=== PATIENT | female | born 2005 | race Caucasian/White ===

== ENCOUNTER 2025-04-24 14:32 | Inpatient (IN) | payer MEDICAID, SELFPAY ==
--- OUTSIDE RECORDS SUMMARY | 2025-04-21 21:13 | XMS_ITS | Encounter Summary ---
Author Organization Deisi Alfonso [facility] Address [address] [place] [id number] Care Team Providers Care Civil Cad Designer Name Role Phone None, Pcp MD Primary Care Provider Unavailabl e Reason for Visit * Reason Comments Behavioral Health Encounter Details Date Type Department Care Team (Late st Contact Info) Description 04/21/2025 9:13 PM EDT - 04/24/2025 12:45 PM EDT Emergency [facility] [address] [place] [address] James Womack MD [address] [place] [address] Carlo Hoffman MD [address] [place] [address] Mauricio Lemon MD [address] [place] [address] Lul Martinez MD [address] [place] [address] Ander Senior MD [address] [place] [address], [address] [place] [id number] Denise Marinelli MD [address] [place] [address] Amando Hicks MD [address] [place] [address] Shannan Hargrove DO [address] [place] [address] Intentional overdose, initial encounter ([facility]) (Primary Dx); Episode of recurrent major depressive disorder, unspecified depression episode severity ([facility]); Depression, unspecified depression type [F32.A] Discharge Disposition: Another Health Care Institution Not Defined Social History Tobacco Use Types Packs/Day Years Used Date Smoking Tobacco: Every Day Cigarettes Tobacco Cessation:Ready to Q uit: Not Asked; Counseling Given: Not Answered Comments:vape Alcohol Use Standard Drinks/Week Comments Yes 0 (1 standard drink = 0.6 oz pur e alcohol) every day, a bottle or two Humiliation, Afraid, Rape, and Kick questionnair e Answer Date Recorded Within the last year, have y ou been afraid of your partner or ex-partner? No 04/21/2025 Emotionally Abused Not on file 04/21/2025 Physically Abused Not on file 04/21/2025 Sexually Abused Not on file 04/21/2025 Overall Financial Resource Strain (CARDIA) Answe r Date Recorded How hard is it for you to pa y for the very basics like food, housing, medical care, and heating? Not hard at all 04/21/2025 Hunger Vital Sign Answer Date Recorded Within the past 12 months, y ou worried that your food would run out before you got the money to buy more. Never true 04/21/20 25 Ran Out of Food in the Last Year Not on file 04/21/2025 PRAPARE - Transportation Answer Date Re corded In the past 12 months, has l ack of transportation kept you from medical appointments or from getting medications? No 04/03 In the past 12 months, has l ack of transportation kept you from meetings, work, or from getting things needed for daily living? No 04/21/2025 Housing Stability Vital Sign Answer Richar e Recorded In the last 12 months, was t here a time when you were not able to pay the mortgage or rent on time? No 04/21/2025 Number of Times Moved in the Last Year Not on fi le 04/21/2025 At any time in the past 12 m [facility], were you homeless or living in a snf (including now)? Yes 04/21/2025 [facility] Utilities Answer Date Recorded In the past 12 months has [employer] electric, gas, oil, or water company threatened to shut off services in your home? No 04/21/2025 Food Insecurity Answer Date Recorded Within the past 12 months, y ou worried that your food would run out before you got the money to buy more. Never true 04/21/20 Ran Out of Food in the Last Year Not on file 04/21/2025 Intimate Partner Violence Answer Date R ecorded Emotionally Abused Not on file 04/21/2025 Within the last year, have y ou been afraid of your partner or ex-partner? No 04/21/2025 Physically Abused Not on file 04/21/2025 Sexually Abused Not on file 04/21/2025 Housing Stability Answer Date Recorded Unstable Housing in the Last Year Not on file 04/21/2025 In the last 12 months, was t here a time when you were not able to pay the mortgage or rent on time? No 04/21/2025 [address] of Places Lived in the Last Year Not on f ile 04/21/2025 Comments No Sex and Gender Information Value Date Recorded Sex Assigned at Female 04/21/2025 8:59 PM EDT Legal Sex Female 10:39 PM EDT Gender Identity Female 04/21/2025 8:59 PM EDT Sexual Orientation Not on file documented as of this encounter Last Filed Vital Signs Vital Sign Reading Time Taken Comments Blood Pressure 124/70 04/24/2025 12:12 PM EDT Pulse 81 04/24/2025 12:12 PM EDT Temperature 36.2 C (97.2 F) 04/24/2025 12:12 PM EDT Respiratory Rate 20 04/24/2025 12:12 PM EDT Oxygen Saturation 100% 04/24/2025 12:12 PM EDT Inhaled Oxygen Concentration - - Weight 56.2 kg (124 lb) 04/21/2025 9:11 PM EDT Height 160 cm (5' 3 ) 04/21/2025 9:11 PM EDT Body Mass Index 21.97 04/21/2025 9:11 PM EDT documented in this encounter Functional Status * Are you deaf or do you have serious difficulty hearing? Answer Date of Assessment Author No 04/21/2025 8:59 PM EDT Sharath Ruiz * Are you blind or do you have serious difficulty seeing, even when wearing glasses? Answer Date of Assessment Author No 04/21/2025 8:59 PM EDT Sharath Ruiz * Do you have serious difficulty walking or climbing stairs? Answer Date of Assessment Author No 04/21/2025 8:59 PM EDT Sharath Ruiz * Do you have difficulty dressing or bathing? Answer Date of Assessment Author No 04/21/2025 8:59 PM EDT Sharath Ruiz * Because of a physical, mental, or emotional condition, do you have difficulty doing errands alone such as visiting the doctor? Answer Date of Assessment Author No 04/21/2025 8:59 PM EDT Sharath Ruiz documented as of this encounter Mental Status * Because of a physical, mental, or emotional condition, do you have serious difficulty concentrating, remembering, or making decisions? Answer Entry Date Author No 04/21/2025 8:59 PM EDT Sharath Ruiz documented in this encounter Medications at Time of Discharge methylphenidate ER (CONCERTA) 18 MG 24 hr tablet Take 1 tablet (18 mg total) by mouth every morning. documented as of this encounter Progress Notes * HALLE Cruz - 04/24/2025 10:23 AM EDT Images from the original note were not included. ED Psych Progress Note Sticky Note Psych Handoff Reason for visit: ibuprofen OD Psych Hx: bpd Drugs/Alcohol: cannabinoids Section 12a: yes HES: reevaluating 04/22/25 am Suicide Level: moderate Medication Reconciliation complete: no Restraints/IM meds in last 24 hours: no Psych Consult: no Placement anticipated in the next 24 hours: pending Other information neg med w/u Last edited by Carlo Hoffman MD on 04/22/25 at 0702 Vitals Date and Time Temp Pulse Resp BP SpO2 User 04/24/25 0809 97.7 ??F (36.5 ??C) 68 20 111/73 100 % KF 04/23/25 0824 -- 105 20 115/75 100 % IG 04/22/25 2242 -- 83 16 130/68 98 % AK 04/22/25 1952 -- 95 16 125/63 97 % AK 04/22/25 1456 -- 102 16 -- 99 % M 04/22/25 1205 -- 86 18 110/56 99 % M 04/21/25 2130 98.2 ??F (36.8 ??C) 107 18 107/59 96 % PL ED Course as of 04/24/25 1023 Tue Apr 22, 2025 1331 Patient has been reevaluated by behavioral health services and they recommended inpatient. Patient extremely angry, going around the ED, screaming at the top of her lungs, will not discuss or talk with myself, cannot be redirected. She appears to be at high risk of injuring hierself or others.Will place in soft restraints, treat with Geodon and Versed IM. Initial ECG shows normal QTc. [KB] 2305 Pt being transferred to [facility] pod. Care transferred to Dr. Marinelli at [facility] ED. [AM] Wed Apr 23, 2025 1626 Updated patient on her blood work and EKG results. I received secure epic chat from behavioralhealth clinician who did a reevaluation of her this afternoon. She had told behavioral clinician that she was not informed of her blood work results. Behavioral health clinician continues to recommend inpatient level of care at this time. [SD] Brittani Apr 24, 2025 1019 [place] for 1:30pm arrival; accepting Dr Jain [SD-2] ED Course User Index [AM] Lul Martinez MD [KB] Carlo Hoffman MD [SD] HALLE Kaminski [SD-2] HALLE Cruz Clinical Impression 1. Intentional overdose, initial encounter ([facility]) 2. Episode of recurrent major depressive disorder, unspecified depression episode severity ([facility]) 3. Depression, unspecified depression type [F32.A] Disposion: Transfer * Warren Mcarthur - 04/24/2025 10:12 AM EDT Behavioral Health Crisis Consult- Contact Note Patient: Laura Bowers : 2005 Admit Date: 04/21/2025 Date of Consult: 04/24/2025 Time of Consult: 10:12 AM Narrative: Patient: Laura Bowers Accepting Facility: [facility] Facility Address: [address] [place] [address] Accepting MD: Dr Jain Arrival Time: 1:30pm Nurse to Nurse Report: they are calling for N2N Other Labs or Needs: N/A HCP/Guardian (if applicable): N/A Reason for Section 12: intention ingestion/OD, poor insight/judgement and impulsivity Information Given To: via secure chat * Em Sheriff MS - 04/24/2025 8:13 AM EDT Behavioral Health Crisis Consult - Follow Up Patient: Laura Bowers : 2005 Admit Date: 04/21/2025 Date of Consult: 04/24/2025 Time of Consult: 8:13 AM CC: Chief Complaint Patient presents with Behavioral Health Chart Reviewed, case discussed with team and staff. Updates: Psych consult outcome/psych medications: None Medical/Psychiatric/Substance/Social/Family History: Histories from previous consult note of 04/23 remain unchanged, except as note in HPI. Current Medications: Scheduled Medications[1] Current PRN: PRN Medications[2] Allergies: Patient has no known allergies. Physical Exam: Patient Vitals for the past 24 hrs: BP Temp Temp src Pulse Resp SpO2 04/24/25 0809 111/73 97.7 ??F (36.5 ??C) Temporal 68 20 100 % 04/23/25 0824 115/75 -- -- (!) 105 20 100 % Mental Status Exam: General Appearance: Appears stated age, well-developed, well-nourished and no apparent distress. Disheveled. Level of Consciousness: Alert. Orientation: Oriented to person, place and time. Attitude and Behavior: Guarded. Eye Contact: Eye contact avoidant. Psychomotor Activity: Normal. Speech: Normal rate and rhythm. Loud. Language: Normal. Affect: Irritable. Thought Process and Associations: Circumstantial. Thought Content: Patient denies SI/HI/AVH. Attention Span: Appropriate. Memory: Grossly intact. Fund of Knowledge: Normal. Cognition: Normal. Insight: Poor. Minimizing present. Judgment: Poor. Labs, Imaging & Other Studies: Laboratory: Recent lab results have been reviewed and are notable for N/A. No results found for this or any previous visit (from the past 24 hours). EKG: No studies were reviewed. C-SSRS: [place] Suicide Severity Rating Scale (C-SSRS) Since Last Contact Screener 1) Have you wished you were or wished you could go to sleep and not wake up? (Since Last Contact): No 2) Have you actually had any thoughts about killing yourself? (Since Last Contact): No 6) Have you done anything, started to do anything, or prepared to do anything to end your life? (Since Last Contact): No C-SSRS Risk Level (Since Last Contact Screener): No Risk Indicated (04/24/25 0809 : Em Sheriff, ) Assessment: Laura Bowers is a 19 year old female who presented to [facility] ED on 04/21/2025 after intentional ingestion of 15 x 800mg Ibuprofen. Patient was evaluated and determined to be IPLOC. Patient was transferred to [facility] ED. Upon evaluation today, patient continues to present with minimal insight to need for treatment. Patient is irritable and guarded through evaluation. Patient states that she took the medication because she was upset and denies this was an attempt to harm herself. Patient reports she came to ED to dilute it from her system however was held involuntarily instead. Patient is looking forward to placement at psychiatric facility and expresses frustration around boarding length in ED. Patient continues to state I'm fine and expresses she does not understand why she is here. Concerns remain forintentional ingestion prior to ED arrival in addition to poor insight/judgement and impulsivity. IPLOC continues to be recommended at this time. Recommendations: Inpatient Level of Care Requested LOC: IPLOC Disposition Recommendation: Inpatient Level of Care Behavioral Health Diagnosis: F32.9 Unspecified Depressive Disorder Duration: Time Spent (min): 60 Case d/w: [facility] Monogram Operator Berkley Moreno Signed by: Em Sheriff MS [1] [2] * Bijal Sommer, ASSISTANT ART DIRECTOR - 04/23/2025 4:24 PM EDT Behavioral Health Crisis Consult - Follow Up Patient: Laura Bowers : 2005 Admit Date: 04/21/2025 Date of Consult: 04/23/2025 Time of Consult: 4:24 PM CC: Chief Complaint Patient presents with Behavioral Health Chart Reviewed, case discussed with team and staff. Patient reports that she wants to be discharged. Updates: Psych consult outcome/psych medications: Was given IM versed and geodon yesterday IM. Collateral Contact: No Medical/Psychiatric/Substance/Social/Family History: Histories from previous consult note of 04/22/25 remain unchanged, except as note in HPI. Current Medications: Scheduled Medications[1] Current PRN: PRN Medications[2] Allergies: Patient has no known allergies. Physical Exam: Patient Vitals for the past 24 hrs: BP Pulse Resp SpO2 04/23/25 0824 115/75 (!) 105 20 100 % 04/22/25 2242 130/68 83 16 98 % 04/22/25 1952 125/63 (!) 95 16 97 % Mental Status Exam: Mental Status Exam General Appearance: Appears stated age, well-developed, well-nourished, appropriately groomed and appropriately dressed. Moderate distress. Level of Consciousness: Alert. Orientation: Oriented to person, place, time and situation. Attitude and Behavior: Interactive. Sarcastic. Eye Contact: Eye contact intermittent. Psychomotor Activity: Normal. Speech: Normal volume, rhythm and coherence. Pressured. Language: Normal. Mood: Patient description of mood: Angry, tearful. Affect: Angry and tearful. Thought Process and Associations: Linear. Thought Content: Reality-oriented. Attention Span: Appropriate. Memory: Grossly intact. Fund of Knowledge: Normal. Cognition: Unable to assess. Insight: Poor. Minimizing and projection present. Judgment: Poor and resists help despite evidence of mental illness. Labs, Imaging & Other Studies: Laboratory: Recent lab results have been reviewed. No results found for this or any previous visit (from the past 24 hours). EKG: No studies were reviewed. C-SSRS: [place] Suicide Severity Rating Scale (C-SSRS) Since Last Contact Screener 1) Have you wished you were or wished you could go to sleep and not wake up? (Since Last Contact): No 2) Have you actually had any thoughts about killing yourself? (Since Last Contact): No 6) Have you done anything, started to do anything, or prepared to do anything to end your life? (Since Last Contact): No C-SSRS Risk Level (Since Last Contact Screener): No Risk Indicated (04/23/25 1623 : Bijal Sommer, [facility]) Assessment: Patient initially presented to the ED on 04/21/2025 after intentional ingestion of 15 x 800 mg Ibuprofen and after initial evaluation recommendation was for IPLOC. Past assessments indicate patient recently had an , has been struggling with housing instability and prior to ingesting the ibuprofen patient got into an argument with a boyfriend. Patient has maintained remorse for the overdose and has stated she did not have suicidal intent at the time she took the ibuprofen. Patient was re-evaluated yesterday and recommendation for IPLOC continued. Patient is actively opposed to inpatient treatment and after finding out yesterday she was staying patient became agitated and was placed in restraints and given Geodon and Versed IM. ED RN noted the following ???Placed in 4 point hard restraints with local [place] police assistance. Running in [place] swearing screaming and threatening to assault staff, when told [facility] recommend inpatient level of care needed. Father instructed to leaveED. Continued to swear, threaten and spit at staff.?? Patient???s history includes past suicide attempt as a teen, past inpatient admission also as a teen and hx of self-harm by cutting. Today, patient is tearful stating ???there is no reason for me to be here.?? She reports feeling angry that she is being held in the ED. She vacillates between some accountability for taking the OD,stating ???I know I made a mistake?? and being upset that she was ever seen by behavioral health, stating she cam in voluntarily for medical care. Patient admits that yesterday she was very upset that she was told she was staying in the ED, admits she went up to nurse???s station and was yelling/swearing at staff and looking for an exit. She reports that she did not start kicking/spitting until staff moved to restrain her, she reports that she was calming down and does feel she should have been restrained. Pt verbalizes that being in the ED is ???triggering?? for her and brings back difficult memories of being hospitalized 6 years ago. She feels she has not been given transparent information from staff. T/w asks patient to all for time for t/w to explain/answer all of patient???s questions. She interrupts a couple of times but is redirectable surrounding taking turns talking during assessment. T/w explained in detail section 12, assessment and bedsearch process, CV/12b. T/w emphasized the importance of patient remaining in behavioral control during bedsearch which she agrees to do. Patient continues to deny SI. Her insight, impulse contorl and judgment are poor at this time. She denies HI/, denies psychosis. Patient is a 19 single white Macanese-speaking cisgender female who is being seen via telehealth at [facility] today. Patient has been boarding as an inpatient psychiatric bedsearch for the past 2 days. Given that yesterday after assessment patient required medication and physical restraint and ongoing lack of insight and ability to meaningfully make a safety plan, recommendation for IPLOC continues. Patient voices her disagreement with this plan but ultimately states she just wants to be moved out of the ED and would rather be on a psych unit where she can get treatment. Patient voices willingness to remain in behavioral control while boarding. If patient is still not place tomorrow and hasbeen in behavioral control, consideration for discharge planning may be appropriate. Disposition isdiscussed with and agreed upon by ED provider HALLE Wood and C Kvng Myles CONY. Recommendations: IPLOC, section 12 Requested LOC: Inpatient Barriers to placement/Specialty Placement Required: uninsured Disposition Recommendation: Inpatient Level of Care Behavioral Health Diagnosis: F32.9 Unspecified Depressive Disorder Duration: Time Spent (min): 60 Case d/w: Kvng Myles, [facility] Signed by: TOLU Martin [1] [2] * HALLE Kaminski - 04/23/2025 7:26 AM EDT Images from the original note were not included. ED Psych Progress Note Sticky Note Psych Handoff Reason for visit: ibuprofen OD Psych Hx: bpd Drugs/Alcohol: cannabinoids Section 12a: yes HES: reevaluating 04/22/25 am Suicide Level: moderate Medication Reconciliation complete: no Restraints/IM meds in last 24 hours: no Psych Consult: no Placement anticipated in the next 24 hours: pending Other information neg med w/u Last edited by Carlo Hoffman MD on 04/22/25 at 0702 Vitals Date and Time Temp Pulse Resp BP SpO2 User 04/23/25 0824 -- 105 20 115/75 100 % IG 04/22/25 2242 -- 83 16 130/68 98 % AK 04/22/25 1952 -- 95 16 125/63 97 % AK 04/22/25 1456 -- 102 16 -- 99 % JMM 04/22/25 1205 -- 86 18 110/56 99 % JMM 04/21/25 2130 98.2 ??F (36.8 ??C) 107 18 107/59 96 % PL ED Course as of 04/23/25 1627 Tue Apr 22, 2025 1331 Patient has been reevaluated by behavioral health services and they recommended inpatient. Patient extremely angry, going around the ED, screaming at the top of her lungs, will not discuss or talk with myself, cannot be redirected. She appears to be at high risk of injuring hierself or others.Will place in soft restraints, treat with Geodon and Versed IM. Initial ECG shows normal QTc. [KB] 2305 Pt being transferred to [facility] pod. Care transferred to Dr. Marinelli at [facility] ED. [AM] MonApr 23, 2025 1626 Updated patient on her blood work and EKG results. I [facility] who did a reevaluation of her this afternoon. She had told behavioral clinician that she was not informed of her blood work results. Behavioral health clinician continues to recommend inpatient level of care at this time. [SD] ED Course User Index [AM] Lul Martinez MD [KB] Carlo Hoffman MD [SD] HALLE Kaminski Clinical Impression 1. Intentional overdose, initial encounter ([facility]) 2. Episode of recurrent major depressive disorder, unspecified depression episode severity ([facility]) Disposition: Boarding Patient discussed with attending physician, Dr. Hicks No overnight events per RN. At time of morning rounds, patient is resting comfortably in bed. NAD. Inpatient bed search continues. Note to patient: The Century Cures Act makes medical notes like these available to patients inthe interest of transparency. However, be advised this is a medical document. It is intended primarily as [id number] communication. It is written in medical language and may contain abbreviations or verbiage that are unfamiliar. It may appear blunt or direct. This is because medical documents areintended to carry relevant information, facts as evident, and the clinical opinion of the practitioner only at of the time of writing. * Trixie Chacko - 04/23/2025 6:58 AM EDT Behavioral Health Crisis Consult- Contact Note Patient: Laura Bowers : 2005 Admit Date: 04/21/2025 Date of Consult: 04/23/2025 Time of Consult: 6:58 AM Narrative: Bed Search Inpatient Unit Referral Date Referral Time Began Review Date Began Review Time Accepted Date Accepted Time Decline Date Decline Time Reason If Decline Comment [facility] Accessible 04/21/25 10:51 PM EDT [facility] 04/21/25 10:51 PM EDT [facility] Accessible 04/23/25 6:57 AM EDT [facility] Accessible 04/23/25 6:57 AM EDT [facility] Accessible 04/23/25 6:57 AM EDT [facility] Accessible 04/23/25 6:57 AM EDT [facility] 04/23/25 6:58 AM EDT [facility] 04/23/25 6:[address] Jose Eduardo Lim [facility] 04/23/25 6:58 AM EDT * Cary Villafana, MEd - 04/22/2025 12:18 PM EDT Behavioral Health Crisis Consult - Follow Up Patient: Laura Bowers : 2005 Admit Date: 04/21/2025 Date of Consult: 04/22/2025 Time of Consult: 2:10 PM CC: Chief Complaint Patient presents with Behavioral Health Chart Reviewed, case discussed with team and staff. DAO SU requested for re-assessment by attending provider on 04/22 due to pt's reported discomfort with recommendation for IP hospitalization Active Orders Restraints Restraints violent or self-destructive adult (age 18 and older) Collateral Contact: Yes (Father Vince [phone] Mother [phone] [employer]) Medical/Psychiatric/Substance/Social/Family History: Histories from previous consult note of 04/21 remain unchanged, except as note in HPI. Current Medications: Scheduled Medications[1] Current PRN: PRN Medications[2] Allergies: Patient has no known allergies. Physical Exam: Patient Vitals for the past 24 hrs: BP Temp Pulse Resp SpO2 Height Weight 04/22/25 1205 110/56 -- 86 18 99 % -- -- 04/21/25 2130 107/59 98.2 ??F (36.8 ??C) (!) 107 18 96 % -- -- 04/21/25 2111 -- -- -- -- -- 1.6 m (5' 3 ) 56.2 kg (124 lb) Mental Status Exam: Mental Status Exam General Appearance: Appears stated age, well-developed, appropriately groomed and no apparent distress. Level of Consciousness: Alert. Orientation: Oriented to person, place, time and situation. Attitude and Behavior: Cooperative. Eye Contact: Good eye contact. Psychomotor Activity: Normal. Speech: Normal rate, volume, rhythm, coherence, articulation, prosody and pitch. Language: Normal. Mood: Patient description of mood: I want to leave. Affect: Irritable. Thought Process and Associations: Logical. Thought Content: Normal. No suicidal ideation, no suicidal plan, no suicidal intent, no suicidal means, no self-injurious ideation, no homicidal ideation and not actively hallucinating. Attention Span: Appropriate. Memory: Grossly intact. Fund of Knowledge: Normal. Cognition: Normal. Insight: Poor. Judgment: Poor. Labs, Imaging & Other Studies: Laboratory: Recent lab results have been reviewed Results for orders placed or performed during the hospital encounter of 04/21/25 (from the past 24 hours) Drug Screen, Urine Result Value Ref Range 6-Aceytlmorphine Screen, Urine Negative Negative Amphetamines Screen, Urine Negative Negative Barbiturates Screen, Urine Negative Negative Benzodiazepine Screen, Urine Negative Negative Buprenorphine Screen, Urine Negative Negative Cannabinoids Screen, Urine Positive (A) Negative Cocaine Metabolite Screen, Urine Negative Negative Ethanol Screen, Urine Negative Negative Fentanyl Screen, Urine Negative Negative Methadone Screen, Urine Negative Negative Opiates Screen, Urine Negative Negative Oxycodone Screen, Urine Negative Negative Tramadol Screen, Urine Negative Negative Creatinine, Valentin Urine 28.0 >=15.0 mg/dL Acetaminophen Level Result Value Ref Range Acetaminophen Result,Blood <5 (L) 10 - 30 ug/mL Salicylate Level Result Value Ref Range Salicylate Level, Blood <1 <30 mg/dL Comprehensive Metabolic Panel (CMP) Result Value Ref Range Sodium 142 135 - 146 mmol/L Potassium 4.1 3.4 - 5.2 mmol/L Chloride 103 98 - 110 mmol/L Total CO2/Bicarbonate 24 24 - 32 mmol/L Anion Gap 16 (H) 2 - 15 mmol/L BUN 13 7 - 24 mg/dL Creatinine, Blood 0.90 0.50 - 1.10 mg/dL Glucose, Blood 95 50 - 100 mg/dL Calcium 9.6 8.5 - 10.5 mg/dL Total Protein 7.2 6.2 - 8.2 g/dL Albumin, Blood 4.8 3.4 - 5.2 g/dL Globulin Result 2.4 2.0 - 4.0 g/dL AST (SGOT) 15 11 - 40 U/L ALT (SGPT) 5 5 - 35 U/L Alkaline Phosphatase 69 30 - 115 U/L Total Bilirubin 0.3 0.2 - 1.2 mg/dL Estimated GFR(CKD-EPI) CBC and Differential Result Value Ref Range WBC 9.67 4.00 - 11.00 K/uL RBC 4.83 4.00 - 5.20 M/uL Hemoglobin 14.3 12.0 - 15.0 g/dL Hematocrit 43.0 36.0 - 45.0 % MCH 29.6 23.0 - 37.0 pg MCHC 33.3 29.0 - 38.0 g/dL MCV 89 82 - 98 fL RDW 12.6 11.5 - 14.5 % Platelet Count 359 150 - 450 K/uL MPV 9.7 6.0 - 14.0 fL Neutrophil 68.6 % Lymphocyte 22.1 % Monocyte 6.7 % Eosinophil 1.4 % Basophil 0.9 % Immature Granulocyte ([place], Myelo, Promyelocyte) 0.3 % Absolute Neutrophil Count 6.62 1.50 - 7.70 K/uL Absolute Immature Granulocyte ([place], Myelo, Promyelocyte) 0.03 0.00 - 0.09 K/uL Absolute Lymphocyte Count 2.14 1.50 - 4.00 K/uL Absolute Monocyte Count 0.65 0.16 - 1.26 K/uL Absolute Eosinophil Count 0.14 (L) 0.15 - 0.30 K/uL Absolute Basophil Count 0.09 0.00 - 0.21 K/uL Comprehensive Metabolic Panel (CMP) Result Value Ref Range Sodium 144 135 - 146 mmol/L Potassium 4.0 3.4 - 5.2 mmol/L Chloride 106 98 - 110 mmol/L Total CO2/Bicarbonate 25 24 - 32 mmol/L Anion Gap 13 2 - 15 mmol/L BUN 15 7 - 24 mg/dL Creatinine, Blood 1.00 0.50 - 1.10 mg/dL Glucose, Blood 87 50 - 100 mg/dL Calcium 9.6 8.5 - 10.5 mg/dL Total Protein 7.5 6.2 - 8.2 g/dL Albumin, Blood 4.9 3.4 - 5.2 g/dL Globulin Result 2.6 2.0 - 4.0 g/dL AST (SGOT) 15 11 - 40 U/L ALT (SGPT) 6 5 - 35 U/L Alkaline Phosphatase 69 30 - 115 U/L Total Bilirubin 0.2 0.2 - 1.2 mg/dL Estimated GFR(CKD-EPI) Acetaminophen Level Result Value Ref Range Acetaminophen Result,Blood <5 (L) 10 - 30 ug/mL Acetaminophen Level Result Value Ref Range Acetaminophen Result,Blood <5 (L) 10 - 30 ug/mL Comprehensive Metabolic Panel (CMP) Result Value Ref Range Sodium 143 135 - 146 mmol/L Potassium 3.9 3.4 - 5.2 mmol/L Chloride 109 98 - 110 mmol/L Total CO2/Bicarbonate 22 (L) 24 - 32 mmol/L Anion Gap 12 2 - 15 mmol/L BUN 15 7 - 24 mg/dL Creatinine, Blood 1.00 0.50 - 1.10 mg/dL Glucose, Blood 80 50 - 100 mg/dL Calcium 9.2 8.5 - 10.5 mg/dL Total Protein 6.9 6.2 - 8.2 g/dL Albumin, Blood 4.6 3.4 - 5.2 g/dL Globulin Result 2.3 2.0 - 4.0 g/dL AST (SGOT) 12 11 - 40 U/L ALT (SGPT) 6 5 - 35 U/L Alkaline Phosphatase 62 30 - 115 U/L Total Bilirubin 0.2 0.2 - 1.2 mg/dL Estimated GFR(CKD-EPI) Salicylate Level Result Value Ref Range Salicylate Level, Blood <1 <30 mg/dL CBC and Differential Result Value Ref Range WBC 9.26 4.00 - 11.00 K/uL RBC 4.65 4.00 - 5.20 M/uL Hemoglobin 13.6 12.0 - 15.0 g/dL Hematocrit 41.8 36.0 - 45.0 % MCH 29.2 23.0 - 37.0 pg MCHC 32.5 29.0 - 38.0 g/dL MCV 90 82 - 98 fL RDW 12.8 11.5 - 14.5 % Platelet Count 326 150 - 450 K/uL MPV 9.3 6.0 - 14.0 fL Neutrophil 61.0 % Lymphocyte 26.1 % Monocyte 10.2 % Eosinophil 1.4 % Basophil 1.0 % Immature Granulocyte ([place], Myelo, Promyelocyte) 0.3 % Absolute Neutrophil Count 5.65 1.50 - 7.70 K/uL Absolute Immature Granulocyte ([place], Myelo, Promyelocyte) 0.03 0.00 - 0.09 K/uL Absolute Lymphocyte Count 2.42 1.50 - 4.00 K/uL Absolute Monocyte Count 0.94 0.16 - 1.26 K/uL Absolute Eosinophil Count 0.13 (L) 0.15 - 0.30 K/uL Absolute Basophil Count 0.09 0.00 - 0.21 K/uL HCG, Quantitative Result Value Ref Range hCG, Quant <1 <5 mIU/mL EKG: No studies were reviewed. C-SSRS: [place] Suicide Severity Rating Scale (C-SSRS) Since Last Contact Screener 1) Have you wished you were or wished you could go to sleep and not wake up? (Since Last Contact): No 2) Have you actually had any thoughts about killing yourself? (Since Last Contact): No 6) Have you done anything, started to do anything, or prepared to do anything to end your life? (Since Last Contact): No 6b.) If 'Yes', was it within the past 3 months?: No C-SSRS Risk Level (Since Last Contact Screener): No Risk Indicated (04/22/25 1204 : Irene Kwan) Assessment: The patient presents with an anxious mood and remorse after ingesting 15 tablets of 800 mg ibuprofen but denies suicidal intent. She has a history of cutting and a suicide attempt at age 14 when she attempted to hang herself but did not succeed after the chord that she tied across her closet snapped and has not tried it again since then. She had prior inpatient psychiatric care in [place] around age 13 or 14. Currently, she has no healthcare providers, lacks stable housing, is not in college, and is unemployed. She denies suicidal or homicidal ideation, hallucinations, and paranoia. The administrative underwriter spoke with the patient's father, Vince at [phone] who stated, I want to take herhome, she made a mistake. He expressed no safety concerns and confirmed that she will be discharged to family who can and will provide support.The patient's father states that she is not homeless and has a safe place to go upon discharge. The patient is alert and oriented to person, place, time, and situation, and was cooperative duringthe evaluation with normal eye contact. Her speech had an even tone, appropriate volume, and rate. Energy level is fair, but affect is irritable. Insight, impulse control, and judgment are poor. Her mood is expressed as, I want to leave. Thought processes appear organized. She denies suicidal ideation, homicidal ideation, auditory/visual hallucinations and self- injurious behavior. The patient requests discharge to an address on file that is listed in [place], which she says belongs to her grandmother???s sister and where her grandmother also lives. She reports unstable housing for the past 3 months, often moving between friends and family in [place], [place]. She disagrees with the recommendation for inpatient psychiatric admission, feeling the decision is based too heavily on her past history rather than her current lack of suicidality. She admits to past self-harm by cutting at age [age]. Regarding the recent ingestion of 15 tablets of 800 mg ibuprofen, she states it was a mistake made during a period of anger after an argument with her boyfriend, describing the relationship as toxic. She denies suicidal intent, saying her action was out of anger rather than a desire to . She searched for ibuprofen side effects afterward and is aware it can affect the kidneys. The patient reported recently having had an and experiencing intrusive thoughts that led to the ingestion, but she regretted it and changed her mind. While in the ER, the patient is calm, cooperative, and in good behavioral control. She is upset that her cell phone is and she has been unable to notify her grandmother of her whereabouts. She is also distressed that her relatives have called the ED but have been unable to reach her. When the patient learned that the recommendation would not change, she became dysregulated, left her room, and attempted to find an exit. Recommendations: The patient is recommended for inpatient level of care due to poor insight, poor judgment, poor impulse control, recent ingestion of a potentially harmful amount of ibuprofen in the context of emotional distress, history of self-harm and a past suicide attempt and disagreement withoutpatient discharge recommendations Requested LOC: [facility] Barriers to placement/Specialty Placement Required: n/a Disposition Recommendation: Inpatient Level of Care Behavioral Health Diagnosis: F32.9 Unspecified Depressive Disorder Duration: Time Spent (min): 90 Case d/w: DOC: Berkley Coats and Carlo Hoffman MD Signed by: Cary Villafana M.Ed. [1] [2] * Garrett Baron, - 04/21/2025 10:52 PM EDT [facility] psych bed. documented in this encounter Consult Notes * Garrett Baron MS - 04/21/2025 10:03 PM EDTAssociated Order(s): BEHAVIORAL HEALTH CRISIS EVALUATION Behavioral Health Crisis Consult - Initial Assessment Patient: Laura Bowers : 2005 Admit Date: 04/21/2025 Date of Consult: 04/21/2025 Time of Consult: 22:03 Consult Requested by: James Womack MD Reason for Consult: Reason for Consult: Laura Bowers, a 19-year-old female, presents at [facility] ED with complaints of reported intentional ingestion of 15 x 800 mg Ibuprofen. Patient reported that she recently had an and that today, she had intrusive thoughts which ledto the ingestion but regreted it and changed her mind. Patient reports that his cousin Lorenzo and a friend brought her to the ED after she called the cousin. . She says that she made a mistake and took 15 Ibuprofen that were 800 mg. She says that she searched to see the side effects after she ingested. She says that she read about how the ibuprofen could affect her kidney. She says that she was upset at the time and had been into an argument with her boyfriend with whom she has a toxic relationship. She says that it was more about being mad with the person rather than wanting to . She says that she has never done this to herself in the person. She says that she took all of the ibuprofens that she had at the time. She denies having SI, HI, AH, VH and paranoia. She says that she does not have a stable housing and hops from friends and family. She says that in the past she was admittedin a psych family in [place] about 4 - 5 years. She says that at age 13 or 14 she used to cut herself with a razor at arms and thighs. She also says that she tried hanging herself at age 14 in her closet.She says that the chord that she has tied on both ends of the closet snapped and has not tried it again since then. She has no current therapist. She is not in college and not working. She notes thatvirgile has a history of PTSD during which in moments of flash backs she sees things not there. Patientis alert and oriented x 4 and in good behavioral control and seems forthcoming with information. Given the about presentation, this clinician recommends inpatient psych placement. This clinician consulted with attending Dr. James Womack and paint roller covers supervisor Kahlil Gilmore. Both consuls support inpatient psych bed search. Chief Complaint Patient presents with Behavioral Health History of Present Illness: Patient is a 19 y.o. female with past medical and psychiatric history as listed who presented to the hospital on 04/21/2025 for Behavioral Health. Behavioral Health is consulted for intentional overdose on ibuprofen. The patient is a 19-year-old female. Medical History: has a past medical history of ADHD (attention deficit hyperactivity disorder). hasno past surgical history on file. Psychiatric History: History of psychiatric illness?: Yes History of suicidal ideation?: Yes History of non-suicidal self injury?: Yes History of interpersonal aggression?: No History of past CECILE?: No Treatment History?: Yes Inpatient Treatment:: Inpatient Psych Current Providers?: No Collateral Contact: No Home Medications: Prescriptions Prior to Admission[1] Current Medications: Scheduled Medications[2] Current PRN: PRN Medications[3] Allergies: Patient has no known allergies. Substance Use History Alcohol: Substance and Sexual Activity Alcohol Use Yes Comment: every day, a bottle or two In the past 12 months,have you had 5 or more drinks(men)/4 or more drinks (women) containing alcohol in one day?: No Tobacco: reports that she has been smoking cigarettes. She does not have any smokeless tobacco history on file. Other: reports current drug use. Drug: Marijuana. Addiction/Substance Use Substances last used: Never used Prescription Medications: In the past 12 months,have you used any prescription medications just for the feeling, more than prescribed or that were no prescribed for you?: No Substances: In the past 12 months, have you used any drugs?: Yes Drugs used:: Marijuana Use/ frequency per week:: a lot Medical and Psychiatric Consequences: Psychosocial Consequences: Social History: Patient reports that she does not have stable housing Socioeconomic History Marital status: Single Employment Status: Data Unavailable Type of Residence: Other (Comment) Children?: No Legal Issues (*Add to Legal History Navigator): Denies History: History [place] status: Minor Personal History: History of trauma/significant life events/GINA?: Yes has no history on file for sexual activity. Family History: Family History[4] Family history of psychiatric illness?: No Family history of CECILE?: Yes Family history of suicidal ideation, attempt or completed suicide?: No Physical Exam: Patient Vitals for the past 24 hrs: BP Temp Pulse Resp SpO2 Height Weight 04/21/250 107/59 98.2 ??F (36.8 ??C) (!) 107 18 96 % -- -- 04/21/251 -- -- -- -- -- 1.6 m (5' 3 ) 56.2 kg (124 lb) Mental Status Exam: MSE Mental Status Exam: Appearance: good hygiene and stated age; appropriate eye contact; well kempt; clean Behavior: cooperative; in good behavioral control Speech: regular rate, regular rhythm, and regular volume Language: fluent and intact Mood: anxious and depressed Affect: flat and constricted Thought Process: organized, goal-directed, logical, concrete, intact, and linear Thought Content: had intrusive thoughts which lead to her ingesting 15 x 800 mg Ibuprofen Hallucinations: absent Attention: intact and attentive Concentration: intact Orientation: time, date, person, place, city, president Memory: intact Fund of Knowledge: intact Impulse control: good Insight: impaired Judgment: impaired Labs, Imaging & Other Studies: Laboratory: Recent lab results have been reviewed and are notable for - see medical chart Results for orders placed or performed during the hospital encounter of 04/21/25 (from the past 24 hours) Drug Screen, Urine Result Value Ref Range 6-Aceytlmorphine Screen, Urine Negative Negative Amphetamines Screen, Urine Negative Negative Barbiturates Screen, Urine Negative Negative Benzodiazepine Screen, Urine Negative Negative Buprenorphine Screen, Urine Negative Negative Cannabinoids Screen, Urine Positive (A) Negative Cocaine Metabolite Screen, Urine Negative Negative Ethanol Screen, Urine Negative Negative Fentanyl Screen, Urine Negative Negative Methadone Screen, Urine Negative Negative Opiates Screen, Urine Negative Negative Oxycodone Screen, Urine Negative Negative Tramadol Screen, Urine Negative Negative Creatinine, Valentin Urine 28.0 >=15.0 mg/dL Acetaminophen Level Result Value Ref Range Acetaminophen Result,Blood <5 (L) 10 - 30 ug/mL Salicylate Level Result Value Ref Range Salicylate Level, Blood <1 <30 mg/dL Comprehensive Metabolic Panel (CMP) Result Value Ref Range Sodium 142 135 - 146 mmol/L Potassium 4.1 3.4 - 5.2 mmol/L Chloride 103 98 - 110 mmol/L Total CO2/Bicarbonate 24 24 - 32 mmol/L Anion Gap 16 (H) 2 - 15 mmol/L BUN 13 7 - 24 mg/dL Creatinine, Blood 0.90 0.50 - 1.10 mg/dL Glucose, Blood 95 50 - 100 mg/dL Calcium 9.6 8.5 - 10.5 mg/dL Total Protein 7.2 6.2 - 8.2 g/dL Albumin, Blood 4.8 3.4 - 5.2 g/dL Globulin Result 2.4 2.0 - 4.0 g/dL AST (SGOT) 15 11 - 40 U/L ALT (SGPT) 5 5 - 35 U/L Alkaline Phosphatase 69 30 - 115 U/L Total Bilirubin 0.3 0.2 - 1.2 mg/dL Estimated GFR(CKD-EPI) CBC and Differential Result Value Ref Range WBC 9.67 4.00 - 11.00 K/uL RBC 4.83 4.00 - 5.20 M/uL Hemoglobin 14.3 12.0 - 15.0 g/dL Hematocrit 43.0 36.0 - 45.0 % MCH 29.6 23.0 - 37.0 pg MCHC 33.3 29.0 - 38.0 g/dL MCV 89 82 - 98 fL RDW 12.6 11.5 - 14.5 % Platelet Count 359 150 - 450 K/uL MPV 9.7 6.0 - 14.0 fL Neutrophil 68.6 % Lymphocyte 22.1 % Monocyte 6.7 % Eosinophil 1.4 % Basophil 0.9 % Immature Granulocyte ([place], Myelo, Promyelocyte) 0.3 % Absolute Neutrophil Count 6.62 1.50 - 7.70 K/uL Absolute Immature Granulocyte ([place], Myelo, Promyelocyte) 0.03 0.00 - 0.09 K/uL Absolute Lymphocyte Count 2.14 1.50 - 4.00 K/uL Absolute Monocyte Count 0.65 0.16 - 1.26 K/uL Absolute Eosinophil Count 0.14 (L) 0.15 - 0.30 K/uL Absolute Basophil Count 0.09 0.00 - 0.21 K/uL EKG: No studies were reviewed. C-SSRS Screener and SAFE-T: [place] Suicide Severity Rating Scale (C-SSRS) Screener 1) In the past month, have you wished you were or wished you could go to sleep and not wake up?: No 2) In the past month, have you actually had any thoughts of killing yourself?: No 6a.) Have you ever done anything, started to do anything, or prepared to do anything to end your life?: Yes 6b.) If 'Yes', was it within the past 3 months?: No C-SSRS Screener Risk Level: Moderate History of Psychiatric Diagnosis:: Anxiety disorder/PTSD Presenting Symptoms: Anxiety and/or panic Family History: None Precipitants/ Stressors/ Interpersonal: None Change in Treatment: Not receiving treatment Access to lethal methods: Ask specifically about presence or absence of a firearm in the home or ease of accessing: No Step 2: Identify Protective Factors (Protective factors may not counteract significant acute suicide risk factors) Internal Protective Factors: Identified coping strategies, Identifies reason for living Step 4: Guidelines to Determine Level of Risk and Develop Interventions to LOWER Risk Level Suicide Risk Level Determined by the Clinician : Moderate Suicide Risk Management of Suicide Risk: Because the patient does not have active suicidal ideation, plan or intent, the patient will be further assessed for psychiatric inpatient level of care Assessment: Patient is a 19 y.o. female with past medical and psychiatric history as above now presents with anxious mood and is remorseful that she ingested 15 x 800 mg Ibuprofen. She denies that she was tryingto end her life. She says that she has a history of cutting as well as history of suicide attempt at age 14 when she attempted to hang herself but did not succeed after the chord that she tied acrossher closet snapped. She says that she has previous inpatient psych in [place] when she was 13 or 14 years old. She currently has not providers and no stable housing. She is not in college and not working.She denies SI, HI, AH, VH and paranoia. Laura Bowers, a 19-year-old female, presents at [facility] ED with complaints of reported intentional ingestion of 15 x 800 mg Ibuprofen. Patient reported that she recently had an and that today, she had intrusive thoughts which led to the ingestion but regreted it and changed her mind. Patient reports that his cousin Lorenzo and a friend brought her to the ED after she called the cousin. . She says that she made a mistake and took 15 Ibuprofen that were 800 mg. She says that she searched to see the side effects after she ingested. She says that she read about how theibuprofen could affect her kidney. She says that she was upset at the time and had been into an argu ment with her boyfriend with whom she has a toxic relationship. She says that it was more about being mad with the person rather than wanting to . She says that she has never done this to herself in the person. She says that she took all of the ibuprofens that she had at the time. She denies having SI, HI, AH, VH and paranoia. She says that she does not have a stable housing and hops from friends and family. She says that in the past she was admitted in a psych family in [place] about 4 - 5 years. She says that at age 13 or 14 she used to cut herself with a razor at arms and thighs. She also says that she tried hanging herself at age 14 in her closet. She says that the chord that she has tied on both ends of the closet snapped and has not tried it again since then. She has no current therapist. She is not in college and not working. She notes that she has a history of PTSD during which in moments of flash backs she sees things not there. Patient is alert and oriented x 4 and in good behavioral control and seems forthcoming with information. Given the about presentation, this clinician recommends inpatient psych placement. This clinician consulted with attending Dr. James Womackand paint roller covers supervisor Kahlil Gilmore. Both consuls support inpatient psych bed search. Recommendations: Inpatient psych placement Intervention and Stabilization Services Requested: Psych consult for med stabilization and Psych consult for diagnostic clarification Disposition Recommendation: Inpatient Level of Care Patient meets criteria for opioid use disorder (OUD): No Behavioral Health Diagnosis: F32.9 Unspecified Depressive Disorder Duration: Time Spent (min): 120 Discussed with Bingo Usher: Yes, Bingo Usher Name: Kahlil Gilmore Discussed with Medical Team: Yes . Dr. James Womack Signed by: Garrett Baron MS [1] (Not in a hospital admission) [2] [3] [4] No family history on file. documented in this encounter ED Notes * Juana Bell RN - 04/22/2025 7:56 PM EDT Pt resting in stretcher. Opens eyes to name. Affect is flat & speech is agitated. Refusing offered meal, stating I'm not eating anything until I leave here . Pt also asking RN when she gets to go home. Tells RN yeah I took 15 ibuprofen, it's not like that would have actually killed me . VSS. Security watch remains. * Juana Bell RN - 04/22/2025 5:10 PM EDT Report received from MARY Snowden. Pt resting in stretcher with even & easy respirations. Securitywatch continues. Awaiting placement; bed search in progress. * Isi Xie RN - 04/22/2025 4:20 PM EDT Sleeping hard restraints off * Isi Xie RN - 04/22/2025 1:45 PM EDT Placed in 4 point hard restraints with local [place] police assistance. Running in [place] swearingscreaming and threatening to assault staff, when told [facility] recommend inpatient level of care needed.Father instructed to leave ED. Continued to swear, threaten and spit at staff. * Karen Arriola RN - 04/22/2025 10:18 AM EDT Pt moved to room 7 aand pt requesting to leave informed pt that the a re screening is planned * Isi Xie RN - 04/22/2025 8:19 AM EDT Breakfast offered left at bedside. Father lying on stretcher with pt. Awaiting re evaluation. Security for watch. * Edith Rutledge RN - 04/21/2025 9:02 PM EDT Arrives via cousin. Patient states recently going thru a situation, I love my life, bur today I have intrusive thoughts. I had an a few months ago and I have a lot of ibuprofen and took 15, 800 mg ibuprofen around 6 or 7 pm. Then I regretted it. I'm feeling drowsy, high, my eyes are low. States took intentionally but then changed her mind. * James Womack MD - 04/21/2025 8:56 PM EDT No acute distress EMERGENCY DEPARTMENT ENCOUNTER CHIEF COMPLAINT Chief Complaint Patient presents with Behavioral Health HPI For HPI please see MDM PAST MEDICAL HISTORY Past Medical History[1] SURGICAL HISTORY Past Surgical History[2] CURRENT MEDICATIONS Patient Medication List Previous Medications METHYLPHENIDATE ER (CONCERTA) 18 MG 24 HR TABLET ALLERGIES Allergies[3] FAMILY HISTORY Family History[4] SOCIAL HISTORY Social History[5] PHYSICAL EXAM VITAL SIGNS: BP 107/59 Pulse (!) 107 Temp 98.2 ??F (36.8 ??C) Resp 18 Ht 1.6 m (5' 3 ) Wt56.2 kg (124 lb) LMP 04/21/2025 (Approximate) SpO2 96% BMI 21.97 kg/m?? Constitutional: No acute distress HENT: Grossly normal Neck: normal range of motion Eyes: conjunctiva normal, no discharge. Lymphatic: No lymphadenopathy noted. Cardiovascular: Normal rate and rhythm. Intact distal pulses and perfusion Respiratory: No respiratory distress normal breath sounds GI: Soft, no tenderness Integument: Warm, dry, no erythema, no rash Back: No tenderness, normal inspection Musculoskeletal: No edema, no tenderness, no cyanosis. Good range of motion in all major joints. Neurologic: Alert & oriented x 3 Psychiatric: mood normal. ED COURSE & MEDICAL DECISION MAKING Laura Bowers is a 19 y.o. female with history of bipolar disease, remote history of self-harm states she used to cut herself from age [age] but stopped who presents now after she took 1500 mg tablets of ibuprofen around 7 PM tonight to her wrist. She did not want to have to kill herself. She currently denies SI or HI or wished for self-harm. She says that she was previously just prescribed medication for bipolar disease but does not take it as she feels it does not help her. She says she currently feels high but denies taking anything else. Physical exam is unremarkable. At this point we will obtain tox screen, EKG and discuss care with poison control/toxicology and will need [facility] evaluation 9:35 PM discussed care with poison control who recommended EKG, labs including electrolytes, salicylate and acetaminophen level and repeat electrolytes in 4 hours. 10:30 PM EKG and initial labs are unremarkable, discussed with behavioral health whom she told thatthat she did try to hang herself as he a number of years ago but the cord broke. They feel that sheshould be admitted for further psychiatric care Results for orders placed or performed during the hospital encounter of 04/21/25 (from the past 24 hours) Drug Screen, Urine Result Value Ref Range 6-Aceytlmorphine Screen, Urine Negative Negative Amphetamines Screen, Urine Negative Negative Barbiturates Screen, Urine Negative Negative Benzodiazepine Screen, Urine Negative Negative Buprenorphine Screen, Urine Negative Negative Cannabinoids Screen, Urine Positive (A) Negative Cocaine Metabolite Screen, Urine Negative Negative Ethanol Screen, Urine Negative Negative Fentanyl Screen, Urine Negative Negative Methadone Screen, Urine Negative Negative Opiates Screen, Urine Negative Negative Oxycodone Screen, Urine Negative Negative Tramadol Screen, Urine Negative Negative Creatinine, Valentin Urine 28.0 >=15.0 mg/dL Acetaminophen Level Result Value Ref Range Acetaminophen Result,Blood <5 (L) 10 - 30 ug/mL Salicylate Level Result Value Ref Range Salicylate Level, Blood <1 <30 mg/dL Comprehensive Metabolic Panel (CMP) Result Value Ref Range Sodium 142 135 - 146 mmol/L Potassium 4.1 3.4 - 5.2 mmol/L Chloride 103 98 - 110 mmol/L Total CO2/Bicarbonate 24 24 - 32 mmol/L Anion Gap 16 (H) 2 - 15 mmol/L BUN 13 7 - 24 mg/dL Creatinine, Blood 0.90 0.50 - 1.10 mg/dL Glucose, Blood 95 50 - 100 mg/dL Calcium 9.6 8.5 - 10.5 mg/dL Total Protein 7.2 6.2 - 8.2 g/dL Albumin, Blood 4.8 3.4 - 5.2 g/dL Globulin Result 2.4 2.0 - 4.0 g/dL AST (SGOT) 15 11 - 40 U/L ALT (SGPT) 5 5 - 35 U/L Alkaline Phosphatase 69 30 - 115 U/L Total Bilirubin 0.3 0.2 - 1.2 mg/dL Estimated GFR(CKD-EPI) CBC and Differential Result Value Ref Range WBC 9.67 4.00 - 11.00 K/uL RBC 4.83 4.00 - 5.20 M/uL Hemoglobin 14.3 12.0 - 15.0 g/dL Hematocrit 43.0 36.0 - 45.0 % MCH 29.6 23.0 - 37.0 pg MCHC 33.3 29.0 - 38.0 g/dL MCV 89 82 - 98 fL RDW 12.6 11.5 - 14.5 % Platelet Count 359 150 - 450 K/uL MPV 9.7 6.0 - 14.0 fL Neutrophil 68.6 % Lymphocyte 22.1 % Monocyte 6.7 % Eosinophil 1.4 % Basophil 0.9 % Immature Granulocyte ([place], Myelo, Promyelocyte) 0.3 % Absolute Neutrophil Count 6.62 1.50 - 7.70 K/uL Absolute Immature Granulocyte ([place], Myelo, Promyelocyte) 0.03 0.00 - 0.09 K/uL Absolute Lymphocyte Count 2.14 1.50 - 4.00 K/uL Absolute Monocyte Count 0.65 0.16 - 1.26 K/uL Absolute Eosinophil Count 0.14 (L) 0.15 - 0.30 K/uL Absolute Basophil Count 0.09 0.00 - 0.21 K/uL Clinical Impression 1. Intentional overdose, initial encounter ([facility]) MDM: Review of non-ED Records Reviewed: Care Everywhere Independent interpretation of tests: EKG Independent interpretation Comments: Sinus rhythm at 105 with normal axis normal intervals no acuteST-T wave abnormality Discussion with Other Providers: Consultants and Social Work Discussion with Other Providers Comments: Poison control/toxicology, psychiatric social work Recent Results (from the past 24 hours) Drug Screen, Urine Collection Time: 04/21/25 9:20 PM Result Value Ref Range 6-Aceytlmorphine Screen, Urine Negative Negative Amphetamines Screen, Urine Negative Negative Barbiturates Screen, Urine Negative Negative Benzodiazepine Screen, Urine Negative Negative Buprenorphine Screen, Urine Negative Negative Cannabinoids Screen, Urine Positive (A) Negative Cocaine Metabolite Screen, Urine Negative Negative Ethanol Screen, Urine Negative Negative Fentanyl Screen, Urine Negative Negative Methadone Screen, Urine Negative Negative Opiates Screen, Urine Negative Negative Oxycodone Screen, Urine Negative Negative Tramadol Screen, Urine Negative Negative Creatinine, Valentin Urine 28.0 >=15.0 mg/dL Acetaminophen Level Collection Time: 04/21/25 9:33 PM Result Value Ref Range Acetaminophen Result,Blood <5 (L) 10 - 30 ug/mL Salicylate Level Collection Time: 04/21/25 9:33 PM Result Value Ref Range Salicylate Level, Blood <1 <30 mg/dL Comprehensive Metabolic Panel (CMP) Collection Time: 04/21/25 9:33 PM Result Value Ref Range Sodium 142 135 - 146 mmol/L Potassium 4.1 3.4 - 5.2 mmol/L Chloride 103 98 - 110 mmol/L Total CO2/Bicarbonate 24 24 - 32 mmol/L Anion Gap 16 (H) 2 - 15 mmol/L BUN 13 7 - 24 mg/dL Creatinine, Blood 0.90 0.50 - 1.10 mg/dL Glucose, Blood 95 50 - 100 mg/dL Calcium 9.6 8.5 - 10.5 mg/dL Total Protein 7.2 6.2 - 8.2 g/dL Albumin, Blood 4.8 3.4 - 5.2 g/dL Globulin Result 2.4 2.0 - 4.0 g/dL AST (SGOT) 15 11 - 40 U/L ALT (SGPT) 5 5 - 35 U/L Alkaline Phosphatase 69 30 - 115 U/L Total Bilirubin 0.3 0.2 - 1.2 mg/dL Estimated GFR(CKD-EPI) CBC and Differential Collection Time: 04/21/25 9:33 PM Result Value Ref Range WBC 9.67 4.00 - 11.00 K/uL RBC 4.83 4.00 - 5.20 M/uL Hemoglobin 14.3 12.0 - 15.0 g/dL Hematocrit 43.0 36.0 - 45.0 % MCH 29.6 23.0 - 37.0 pg MCHC 33.3 29.0 - 38.0 g/dL MCV 89 82 - 98 fL RDW 12.6 11.5 - 14.5 % Platelet Count 359 150 - 450 K/uL MPV 9.7 6.0 - 14.0 fL Neutrophil 68.6 % Lymphocyte 22.1 % Monocyte 6.7 % Eosinophil 1.4 % Basophil 0.9 % Immature Granulocyte ([place], Myelo, Promyelocyte) 0.3 % Absolute Neutrophil Count 6.62 1.50 - 7.70 K/uL Absolute Immature Granulocyte ([place], Myelo, Promyelocyte) 0.03 0.00 - 0.09 K/uL Absolute Lymphocyte Count 2.14 1.50 - 4.00 K/uL Absolute Monocyte Count 0.65 0.16 - 1.26 K/uL Absolute Eosinophil Count 0.14 (L) 0.15 - 0.30 K/uL Absolute Basophil Count 0.09 0.00 - 0.21 K/uL ECG 12 lead Collection Time: 04/21/25 9:37 PM Result Value Ref Range Ventricular Heart Rate 105 BPM Atrial Heart Rate 105 BPM NE Interval 148 ms QRSD Interval 78 ms QT Interval 322 ms QTC Interval 425 ms P [place] 72 degrees R [place] 47 degrees T Wave [place] 47 degrees No results found for this or any previous visit. James Womack MD 04/21/25 8693 [1] Past Medical History: Diagnosis Date ADHD (attention deficit hyperactivity disorder) [2] No past surgical history on file. [3] No Known Allergies [4] No family history on file. [5] Social History Socioeconomic History Marital status: Single Tobacco Use Smoking status: Every Day Types: Cigarettes Tobacco comments: vape Substance and Sexual Activity Alcohol use: Yes Comment: every day, a bottle or two Drug use: Yes Types: Marijuana James Womack MD 04/21/252235 * Carlo Hoffman MD - 04/21/2025 8:56 PM EDT ED Course as of 04/22/25 1333 e Apr 22, [id number] Patient has been reevaluated by behavioral health services and they recommended inpatient. Patient extremely angry, going around the ED, screaming at the top of her lungs, will not discuss or talk with myself, cannot be redirected. She appears to be at high risk of injuring hierself or others.Will place in soft restraints, treat with Geodon and Versed IM. Initial ECG shows normal QTc. [KB] ED Course User Index [KB] MD Carlo Parson MD 04/22/251332 documented in this encounter Miscellaneous Notes * Psych Progress Note - TOLU Martin - 04/23/2025 4:32 PM EDT Norman/Ramin updated that patient continues to be a IP bedsearch and needs placement. * Psych Progress Note - ROSIO Pires - 04/22/2025 3:16 AM EDT DAO SU requested for re-assessment by attending provider in morning hours on 04/22 due to pt's reported discomfort with recommendation for IP hospitalization. This administrative underwriter explained that MSU will occur in morning on 04/22. DAO then informed that pt requires repeat labs at 5:30 am, at the recommendation of poison control. Pt is not yet medically cleared. For the above reasons, bedsearch is on hold pending MSU and medical clearance.[facility] supervisorinformed. documented in this encounter Plan of Treatment Not on file documented as of this encounter Procedures Procedure Name Priority Date/Time Associated Diagnosis Comments CBC AND DIFFERENTIAL STAT 04/22/2025 5:45 AM EDT CBC AND DIFFERENTIAL STAT 04/22/2025 5:45 AM EDT HCG, QUANTITATIVE Routine 04/22/2025 5:4 5 AM EDT ACETAMINOPHEN LEVEL STAT 04/22/2025 5 :45 AM EDT SALICYLATE LEVEL STAT 04/22/2025 5:45 AM EDT COMPREHENSIVE METABOLIC PANEL STAT 04/22/2025 5:45 AM EDT ACETAMINOPHEN LEVEL STAT 04/22/2025 1 :20 AM EDT COMPREHENSIVE METABOLIC PANEL STAT 04/22/2025 1:20 AM EDT ECG 12-LEAD STAT 04/21/2025 9:37 PM EDT CBC AND DIFFERENTIAL STAT 04/21/2025 9:33 PM EDT CBC AND DIFFERENTIAL STAT 04/21/2025 9:33 PM EDT ACETAMINOPHEN LEVEL STAT 04/21/2025 9 :33 PM EDT SALICYLATE LEVEL STAT 04/21/2025 9:33 PM EDT COMPREHENSIVE METABOLIC PANEL STAT 04/21/2025 9:33 PM EDT DRUG SCREEN, URINE STAT 04/21/2025 9: 20 PM EDT documented in this encounter Results * HCG, Quantitative (04/22/2025 5:45 AM EDT) Pathologist [facility] hCG, Quant <1 <5 mIU/mL 04/22/2025 7:40 AM EDT [facility] Comment: Females: Non-: < 5.0 IU/L Post-menopausal < 8.0 Redd/L : Gestational Age expected hCG Values Redd/L 1 week 5-50 1-2 weeks 50-500 2-3 weeks 100-5,000 3-4 weeks 500-10,000 4-5 weeks 1,000-50,000 5-6 weeks 10,000-100,000 6-8 weeks 15,000-200,000 2-3 months 10,000-100,000 Blood PERIPHERAL BLOOD SPECIMEN / Unknown Venipuncture / Unknown 04/22/2025 5:45 AM EDT 04/22/2025 5:47 AM EDT us Carlo Hoffman MD LAB BLOOD ORDERABLES Final Resu lt [facility] [address] [place] [address] * (ABNORMAL) CBC and Differential (04/22/2025 5:45 AM EDT) Pathologist [facility] WBC 9.26 4.00 - 11.00 K/uL 04/22/2025 5:50 AM EDT [facility] RBC 4.65 4.00 - 5.20 M/uL 04/22/2025 5:50 AM EDT [facility] Hemoglobin 13.6 12.0 - 15.0 g/dL 04/22/2025 5:50 AM EDT [facility] Hematocrit 41.8 36.0 - 45.0 % 04/22/2025 5:50 AM EDT [facility] MCH 29.2 23.0 - 37.0 pg 04/22/2025 5:50 AM EDT [facility] MCHC 32.5 29.0 - 38.0 g/dL 04/22/2025 5:50 AM EDT [facility] MCV 90 82 - 98 fL 04/22/2025 5:50 AM EDT [facility] RDW 12.8 11.5 - 14.5 % 04/22/2025 5:50 AM EDT [facility] Platelet Count 326 150 - 450 K/uL 04/22/2025 5:50 AM EDT [facility] MPV 9.3 6.0 - 14.0 fL 04/22/2025 5:50 AM EDT [facility] Neutrophil 61.0 % 04/22/2025 5:50 AM EDT [facility] Lymphocyte 26.1 % 04/22/2025 5:50 AM EDT [facility] Monocyte 10.2 % 04/22/2025 5:50 AM EDT [facility] Eosinophil 1.4 % 04/22/2025 5:50 AM EDT [facility] Basophil 1.0 % 04/22/2025 5:50 AM EDT [facility] Immature Granulocyte ([place], Myelo, Promyelocyte) 0.3 % 04/22/2025 5:50 AM EDT [facility] Absolute Neutrophil Count 5.65 1.50 - 7.70 K/uL 04/22/2025 5:50 AM EDT [facility] Absolute Immature Granulocyte ([place], Myelo, Promyelocyte) 0.03 0.00 - 0.09 K/uL 04/22/2025 5:50 AM EDT [facility] Absolute Lymphocyte Count 2.42 1.50 - 4.00 K/uL 04/22/2025 5:50 AM EDT [facility] Absolute Monocyte Count 0.94 0.16 - 1.26 K/uL 04/22/2025 5:50 AM EDT [facility] Absolute Eosinophil Count 0.13(L) 0.15 - 0.30 K/uL 04/22/2025 5:50 AM EDT [facility] Absolute Basophil Count 0.09 0.00 - 0.21 K/uL 04/22/2025 5:50 AM EDT [facility] Blood PERIPHERAL BLOOD SPECIMEN / Unknown Venipuncture / Unknown 04/22/2025 5:45 AM EDT 04/22/2025 5:47 AM EDT us James Womack MD LAB BLOOD ORDERABLES Final Result Performing Organization Address City/[facility]/ZIP Co de Phone Number [facility] [address] [place] [address] * Salicylate Level (04/22/2025 5:45 AM EDT) Salicylate Level, Blood <1 <30 mg/dL 04/22/2025 6:13 AM EDT [facility] Comment:None Detected Blood PERIPHERAL BLOOD SPECIMEN / Unknown Venipuncture / Unknown 04/22/2025 5:45 AM EDT 04/22/2025 5:47 AM EDT us James Womack MD LAB BLOOD ORDERABLES Final Result Performing Organization Address [facility] de Phone Number [facility] [address] [place] [address] * (ABNORMAL) Comprehensive Metabolic Panel (CMP) (04/22/2025 5:45 AM EDT) Sodium 143 135 - 146 mmol/L 04/22/2025 6:13 AM EDT [facility] Potassium 3.9 3.4 - 5.2 mmol/L 04/22/2025 6:13 AM EDT [facility] Comment:Samples tested in se rum may exhibit a higher potassium value than those tested on plasma. Our current range is based on plasma testing. Chloride 109 98 - 110 mmol/L 04/22/2025 6:13 AM EDT [facility] Total CO2/Bicarbonate 22(L) 24 - 32 mmol/L 04/22/2025 6:13 AM EDT [facility] Anion Gap 12 2 - 15 mmol/L 04/22/2025 6:13 AM EDT [facility] BUN 15 7 - 24 mg/dL 04/22/2025 6:13 AM EDT [facility] Creatinine, Blood 1.00 0.50 - 1.10 mg/dL 04/22/2025 6:13 AM EDT [facility] Glucose, Blood 80 50 - 100 mg/dL 04/22/2025 6:13 AM EDT [facility] Calcium 9.2 8.5 - 10.5 mg/dL 04/22/2025 6:13 AM EDT [facility] Total Protein 6.9 6.2 - 8.2 g/dL 04/22/2025 6:13 AM EDT [facility] Albumin, Blood 4.6 3.4 - 5.2 g/dL 04/22/2025 6:13 AM EDT [facility] Globulin Result 2.3 2.0 - 4.0 g/dL 04/22/2025 6:13 AM EDT [facility] AST (SGOT) 12 11 - 40 U/L 04/22/2025 6:13 AM EDT [facility] ALT (SGPT) 6 5 - 35 U/L 04/22/2025 6:13 AM EDT [facility] Alkaline Phosphatase 62 30 - 115 U/L 04/22/2025 6:13 AM EDT [facility] Total Bilirubin 0.2 0.2 - 1.2 mg/dL 04/22/2025 6:13 AM EDT [facility] Estimated GFR(CKD-EPI) 04/22/2025 6:13 AM EDT [facility] Blood PERIPHERAL BLOOD SPECIMEN / Unknown Venipuncture / Unknown 04/22/2025 5:45 AM EDT 04/22/2025 5:47 AM EDT James Womack MD LAB BLOOD ORDERABLES Final Result [facility] [address] [place] [address] * (ABNORMAL) Acetaminophen Level (04/22/2025 5:45 AM EDT) Acetaminophen Result,Blood <5(L) 10 - 30 ug/mL 04/22/2025 6:13 AM EDT [facility] Blood PERIPHERAL BLOOD SPECIMEN / Unknown Venipuncture / Unknown 04/22/2025 5:45 AM EDT 04/22/2025 5:47 AM EDT us James Womack MD LAB BLOOD ORDERABLES Final Result Performing Organization Address City/[facility]/ZIP Co de Phone Number [facility] [address] [place] [address] * (ABNORMAL) Acetaminophen Level (04/22/2025 1:20 AM EDT) Acetaminophen Result,Blood <5(L) 10 - 30 ug/mL 04/22/2025 1:50 AM EDT [facility] Blood PERIPHERAL BLOOD SPECIMEN / Unknown Venipuncture / Unknown 04/22/2025 1:20 AM EDT 04/22/2025 1:22 AM EDT us James Womack MD LAB BLOOD ORDERABLES Final Result Performing Organization Address [facility] de Phone Number [facility] [address] [place] [address] * Comprehensive Metabolic Panel (CMP) (04/22/2025 1:20 AM EDT) Sodium 144 135 - 146 mmol/L 04/22/2025 1:50 AM EDT [facility] Potassium 4.0 3.4 - 5.2 mmol/L 04/22/2025 1:50 AM EDT [facility] Comment:Samples tested in se rum may exhibit a higher potassium value than those tested on plasma. Our current range is based on plasma testing. Chloride 106 98 - 110 mmol/L 04/22/2025 1:50 AM EDT [facility] Total CO2/Bicarbonate 25 24 - 32 mmol/L 04/22/2025 1:50 AM EDT [facility] Anion Gap 13 2 - 15 mmol/L 04/22/2025 1:50 AM EDT [facility] BUN 15 7 - 24 mg/dL 04/22/2025 1:50 AM EDT [facility] Creatinine, Blood 1.00 0.50 - 1.10 mg/dL 04/22/2025 1:50 AM EDT [facility] Glucose, Blood 87 50 - 100 mg/dL 04/22/2025 1:50 AM EDT [facility] Calcium 9.6 8.5 - 10.5 mg/dL 04/22/2025 1:50 AM EDT [facility] Total Protein 7.5 6.2 - 8.2 g/dL 04/22/2025 1:50 AM EDT [facility] Albumin, Blood 4.9 3.4 - 5.2 g/dL 04/22/2025 1:50 AM EDT [facility] Globulin Result 2.6 2.0 - 4.0 g/dL 04/22/2025 1:50 AM EDT [facility] AST (SGOT) 15 11 - 40 U/L 04/22/2025 1:50 AM EDT [facility] ALT (SGPT) 6 5 - 35 U/L 04/22/2025 1:50 AM EDT [facility] Alkaline Phosphatase 69 30 - 115 U/L 04/22/2025 1:50 AM EDT [facility] Total Bilirubin 0.2 0.2 - 1.2 mg/dL 04/22/2025 1:50 AM EDT [facility] Estimated GFR(CKD-EPI) 04/22/2025 1:50 AM EDT [facility] Blood PERIPHERAL BLOOD SPECIMEN / Unknown Venipuncture / Unknown 04/22/2025 1:20 AM EDT 04/22/2025 1:22 AM EDT James Womack MD LAB BLOOD ORDERABLES Final Result [facility] [address] [place] [address] * ECG 12 lead (04/21/2025 9:37 PM EDT) Ventricular Heart Rate 105 BPM EKG BUR MUSE Atrial Heart Rate 105 BPM EKG BUR MUSE NE Interval 148 ms EKG BUR MUSE QRSD Interval 78 ms EKG BUR MUSE QT Interval 322 ms EKG BUR MUSE QTC Interval 425 ms EKG BUR MUSE P [place] 72 degrees EKG BUR MUSE R [place] 47 degrees EKG BUR MUSE T Wave [place] 47 degrees EKG BUR MUSE 04/21/2025 9:32 PM EDT 04/22/2025 2:39 PM EDT Narrative EKG PATTI MUSE - 04/22/2025 2:39 PM EDT Sinus tachycardia Otherwise normal ECG No previous ECGs available Confirmed by Hunter Funk ([id number]) on 04/22/2025 2:39:32 PM Procedure Note Hunter Funk MD - 04/22/2025 Sinus tachycardia Otherwise normal ECG No previous ECGs available Confirmed by Hunter Funk ([id number]) on 04/22/2025 2:39:32 PM us James Womack MD ECG ORDERABLES Final Resul t EKG PATTI RUBI [address] [place] [id number] * (ABNORMAL) CBC and Differential (04/21/2025 9:33 PM EDT) WBC 9.67 4.00 - 11.00 K/uL 04/21/2025 9:38 PM EDT [facility] RBC 4.83 4.00 - 5.20 M/uL 04/21/2025 9:38 PM EDT [facility] Hemoglobin 14.3 12.0 - 15.0 g/dL 04/21/2025 9:38 PM EDT [facility] Hematocrit 43.0 36.0 - 45.0 % 04/21/2025 9:38 PM EDT [facility] MCH 29.6 23.0 - 37.0 pg 04/21/2025 9:38 PM EDT [facility] MCHC 33.3 29.0 - 38.0 g/dL 04/21/2025 9:38 PM EDT [facility] MCV 89 82 - 98 fL 04/21/2025 9:38 PM EDT [facility] RDW 12.6 11.5 - 14.5 % 04/21/2025 9:38 PM EDT [facility] Platelet Count 359 150 - 450 K/uL 04/21/2025 9:38 PM EDT [facility] MPV 9.7 6.0 - 14.0 fL 04/21/2025 9:38 PM EDT [facility] Neutrophil 68.6 % 04/21/2025 9:38 PM EDT [facility] Lymphocyte 22.1 % 04/21/2025 9:38 PM EDT [facility] Monocyte 6.7 % 04/21/2025 9:38 PM EDT [facility] Eosinophil 1.4 % 04/21/2025 9:38 PM EDT [facility] Basophil 0.9 % 04/21/2025 9:38 PM EDT [facility] Immature Granulocyte ([place], Myelo, Promyelocyte) 0.3 % 04/21/2025 9:38 PM EDT [facility] Absolute Neutrophil Count 6.62 1.50 - 7.70 K/uL 04/21/2025 9:38 PM EDT [facility] Absolute Immature Granulocyte ([place], Myelo, Promyelocyte) 0.03 0.00 - 0.09 K/uL 04/21/2025 9:38 PM EDT [facility] Absolute Lymphocyte Count 2.14 1.50 - 4.00 K/uL 04/21/2025 9:38 PM EDT [facility] Absolute Monocyte Count 0.65 0.16 - 1.26 K/uL 04/21/2025 9:38 PM EDT [facility] Absolute Eosinophil Count 0.14(L) 0.15 - 0.30 K/uL 04/21/2025 9:38 PM EDT [facility] Absolute Basophil Count 0.09 0.00 - 0.21 K/uL 04/21/2025 9:38 PM EDT [facility] Blood PERIPHERAL BLOOD SPECIMEN / Unknown Venipuncture / Unknown 04/21/2025 9:33 PM EDT 04/21/2025 9:35 PM EDT us James Womack MD LAB BLOOD ORDERABLES Final Result [facility] [address] [place] [address] * (ABNORMAL) Comprehensive Metabolic Panel (CMP) (04/21/2025 9:33 PM EDT) [facility] Sodium 142 135 - 146 mmol/L 04/21/2025 10:01 PM EDT [facility] Potassium 4.1 3.4 - 5.2 mmol/L 04/21/2025 10:01 PM EDT [facility] Comment:Samples tested in se rum may exhibit a higher potassium value than those tested on plasma. Our current range is based on plasma testing. Chloride 103 98 - 110 mmol/L 04/21/2025 10:01 PM EDT [facility] Total CO2/Bicarbonate 24 24 - 32 mmol/L 04/21/2025 10:01 PM EDT [facility] Anion Gap 16(H) 2 - 15 mmol/L 04/21/2025 10:01 PM EDT [facility] BUN 13 7 - 24 mg/dL 04/21/2025 10:01 PM EDT [facility] Creatinine, Blood 0.90 0.50 - 1.10 mg/dL 04/21/2025 10:01 PM EDT [facility] Glucose, Blood 95 50 - 100 mg/dL 04/21/2025 10:01 PM EDT [facility] Calcium 9.6 8.5 - 10.5 mg/dL 04/21/2025 10:01 PM EDT [facility] Total Protein 7.2 6.2 - 8.2 g/dL 04/21/2025 10:01 PM EDT [facility] Albumin, Blood 4.8 3.4 - 5.2 g/dL 04/21/2025 10:01 PM EDT [facility] Globulin Result 2.4 2.0 - 4.0 g/dL 04/21/2025 10:01 PM EDT [facility] AST (SGOT) 15 11 - 40 U/L 04/21/2025 10:01 PM EDT [facility] ALT (SGPT) 5 5 - 35 U/L 04/21/2025 10:01 PM EDT [facility] Alkaline Phosphatase 69 30 - 115 U/L 04/21/2025 10:01 PM EDT [facility] Total Bilirubin 0.3 0.2 - 1.2 mg/dL 04/21/2025 10:01 PM EDT [facility] Est[facility] GFR(CKD-EPI) 04/21/2025 10:01 PM EDT [facility] Blood PERIPHERAL BLOOD SPECIMEN / Unknown Venipuncture / Unknown 04/21/2025 9:33 PM EDT 04/21/2025 9:35 PM EDT us James Womack MD LAB BLOOD ORDERABLES Final Result Performing Organization Address City/[facility] Co de Phone Number [facility] [address] [place] [address] * Salicylate Level (04/21/2025 9:33 PM EDT) Salicylate Level, Blood <1 <30 mg/dL 04/21/2025 10:01 PM EDT [facility] Comment:None Detected Blood PERIPHERAL BLOOD SPECIMEN / Unknown Venipuncture / Unknown 04/21/2025 9:33 PM EDT 04/21/2025 9:35 PM EDT us James Womack MD LAB BLOOD ORDERABLES Final Result Performing Organization Address [facility] de Phone Number [facility] [address] [place] [address] * (ABNORMAL) Acetaminophen Level (04/21/2025 9:33 PM EDT) Acetaminophen Result,Blood <5(L) 10 - 30 ug/mL 04/21/2025 10:01 PM EDT [facility] Blood PERIPHERAL BLOOD SPECIMEN / Unknown Venipuncture / Unknown 04/21/2025 9:33 PM EDT 04/21/2025 9:35 PM EDT us James Womack MD LAB BLOOD ORDERABLES Final Result Performing Organization Address [facility] de Phone Number [facility] [address] [place] [address] * (ABNORMAL) Drug Screen, Urine (04/21/2025 9:20 PM EDT) 6-Aceytlmorphine Screen, Urine Negative Negative 04/21/2025 9:52 PM EDT [facility] Comment:Add on order [id number] Opiates and Oxycodone, Urine, Confirmation, if confirmation desired. Amphetamines Screen, Urine Negative Negative 04/21/2025 9:52 PM EDT [facility] Comment: Screen for Amphetamine, Metamphetamine or other Amphetamine-like compounds. Add-on order [id number] Amphetamine, Urine, Confirmation if confirmation desired. Barbiturates Screen, Urine Negative Negative 04/21/2025 9:52 PM EDT [facility] Comment:Add-on order [id number] Barbiturate, Urine, Confirmation if confirmation desired. Benzodiazepine Screen, Urine Negative Negative 04/21/2025 9:52 PM EDT [facility] Comment: Add-on order [id number] Benzodiazepine, Urine, Confirmation if confirmation desired. Buprenorphine Screen, Urine Negative Negative 04/21/2025 9:52 PM EDT [facility] Comment:Add-on order [id number] Buprenorphine, Urine, Confirmation if confirmation desired. Cannabinoids Screen, Urine Positive(A) Negative 04/21/2025 9:52 PM EDT [facility] Comment:Add-on order [id number] Cannabinoids, Urine, if confirmation desired. Cocaine Metabolite Screen, Urine Negative Negative 04/21/2025 9:52 PM EDT [facility] Comment:Add-on order [id number] Cocaine, Urine, Confirmation if confirmation desired. Ethanol Screen, Urine Negative Negative 04/21/2025 9:52 PM EDT [facility] Fentanyl Screen, Urine Negative Negative 04/21/2025 9:52 PM EDT [facility] Comment:Add-on order [id number] Fentanyl Confirmation, Urine, if confirmation desired. Methadone Screen, Urine Negative Negative 04/21/2025 9:52 PM EDT [facility] Comment:Add order [id number] Me thadone, Urine, Confirmation if confirmation desired. Opiates Screen, Urine Negative Negative 04/21/2025 9:52 PM EDT [facility] Comment: Screen for Morphine, Codeine, Hyrdocodone, Hydromorphone, or other Morphine- related opiates. Add on order [id number] Opiates and Oxycodone, Urine, Confirmation if confirmation desired. Oxycodone Screen, Urine Negative Negative 04/21/2025 9:52 PM EDT [facility] Comment:Add-on order [id number] Opiates and Oxycodone, Urine, Confirmation if confirmation desired. Tramadol Screen, Urine Negative Negative 04/21/2025 9:52 PM EDT [facility] Comment:Add-on order [id number] Tramadol Confirmation, Urine, if confirmation desired. Creatinine, Valentin Urine 28.0 >=15.0 mg/dL 04/21/2025 9:52 PM EDT [facility] Urine URINE SPECIMEN / Unknown Collection / Unknown 04/21/2025 9:20 PM EDT 04/21/2025 9:23 PM EDT [facility] - 04/21/2025 9:52 PM EDT These tests are for screening purposes only and should only be used for medical purposes. The cutoff concentrations for determining a positive result are as follows: 6-Acetylmorphine 10 ng/mL 6-acetylmorphine Amphetamines 1000 ng/mL d-methamphetamine Barbiturates 200 ng/mL secobarbital Benzodiazepines 200 ng/mL nordiazepam Buprenorphine 5 ng/mL norbuprenorphine Cannabinoids 50 ng/mL COOH-THC Cocaine 300 ng/mL benzoylecgonine Ethanol 20 mg/dL ethanol Fentanyl 5 ng/mL norfentanyl Methadone 300 ng/mL methadone Opiates 300 ng/mL morphine Oxycodone 100 ng/mL oxycodone Tramadol 200 ng/mL tramadol False negative and false positive results may occur due to cross-reactivity, patient medications or sample adulteration. If the validity of these results is uncertain, confirmatory testing can be done upon specific request. us James Womack MD URINE ORDERABLES Final Resu lt [facility] [address] [place] [address] documented in this encounter Visit Diagnoses Diagnosis Intentional overdose, initial encounter ([facility])- Primary Episode of recurrent major depressive disorder, unspecified depression episode severity ([facility]) Depression, unspecified depression type [F32.A] documented in this encounter Administered Medications Inactive Administered Medications - up to 3 most recent administrations Medication Order MAR Action Action Date Dose Rate Site midazolam (VERSED) injection 2 mg 2 mg, Intramuscular, Once, 1 dose, On Mon04/22/25 at 1333 Given 04/22/2025 1:40 PM EDT 2 mg Right Anterior Thigh ziprasidone (GEODON) injection 20 mg 20 mg, Intramuscular, Once, 1 dose, On Mon04/22/25 at 1333 Given 04/22/2025 1:41 PM EDT 20 mg Left Anterior Thigh documented in this encounter Active and Recently Administered Medications Times are shown in EDT. Scheduled Medication Order 04/22/2025 04/23/2025 04/24/2025 midazolam (VERSED) injection 2 mg (COMPLETED) 2 mg, Intramuscular, Once, 1 dose, On Mon04/22/25 at 1333 1340 (Given - Provider: Isi Xie RN) ziprasidone (GEODON) injection 20 mg (COMPLETED) 20 mg, Intramuscular, Once, 1 dose, On Mon04/22/25 at 1333 1341 (Given - Provider: Isi Xie RN) documented in this encounter Care Teams Civil Cad Designer Relationship Specialty Start Date End Date None, Pcp, PCP - General 04/21/25 documented as of this encounter
[2025-04-24 14:50] VITALS: BMI 21.7
[2025-04-24 14:51] VITALS: BP 133/80; PULSE 83; TEMP 36.6; O2SAT 98
--- NOTE | 2025-04-24 17:30 | PC.ADMIT ---
Laura is a19 yr old female, transferred from [facility] to at 14:47. She signed a CV, then subsequently signed a 3 Day Notice (up 04/29). Laura has a reported history of PTSD and Bipolar?but LAURA STATES THE BIPOLAR DIAGNOSIS WAS A MISTAKE. She was only 14 at the time. 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 I haven?t taken any meds for the last few years.? She has a remote history of self harm (cutting) & suicide attempt years ago. The precipitating factor to this admission was an argument with her boyfriend, with whom she has a toxic relationship?. Laura impulsively took fifteen 800mg ibuprofen tablets. She then called her cousin who took her to the ED for fear of medical effects after ingesting such a large quantity of ibuprofen. While in the ED she was chemically & four point restrained due to acting out toward staff when she was told about plans for psychiatric IPLOC. Laura is technically homeless &? has been staying with different friends. Her father states she has a safe place to stay at his home. Laura doesn?t want to stay with her father. She endorses occasional ptsd flashbacks during which she sees things that aren?t there. On admission to Laura is alert, oriented & cooperative with the admission process. She declined to sign NICKIE?s. Laura denies SI. She states her ibuprofen overdose was impulsive & contracts for safety at this time. She denies HI/AVH. She is pleasant and engaged with appropriate eye contact, maintains good eye contact. Her mood is described as ?okay?. Skin check is unremarkable.? Laura was oriented to the unit & placed on 15 min safety checks.
--- OUTSIDE RECORDS SUMMARY | 2025-04-24 18:25 | XMS_ITS | Clinical Summary ---
Author Organization [facility] Address [address] [place] [id number] Care Team Providers Care Hand Worker Name Role Phone None, Pcp MD Primary Care Provider Unavailabl e Allergies No known active allergies Medications methylphenidate ER (CONCERTA) 18 MG 24 hr tablet Take 1 tablet (18 mg total) by mouth every morning. Active Encounters Date Type Department Care Team Description 04/21/2025 9:13 PM EDT - 04/24/2025 12:45 PM EDT Emergency [facility] [address] [place] [address] James Womack MD Berger, MD Ion Sood, MD Juan Sullivan, MD Parrish Wilkinson, MD Yves Daigle, MD Kurt Castaneda, MD Beena Jason Lauren E, DO Intentional overdose, initial encounter ([facility]) (Primary Dx); Episode of recurrent major depressive disorder, unspecified depression episode severity ([facility]); Depression, unspecified depression type [F32.A] Discharge Disposition: Another Health Care Institution Not Defined 04/21/2025 Travel from Last 3 Months Social History Tobacco Use Types Packs/Day Years [...] any time in the past 12 m [facility], were you homeless or living in a [facility] (including now)? Yes 04/21/2025 [facility] Utilities Answer Date Recorded In the past 12 months has e Rev, gas, oil, or water [employer] threatened to shut off services in your [...] PM EDT Sexual Orientation Not on file Last Filed Vital Signs Vital Sign Reading [...] Mass Index 21.97 04/21/2025 9:11 PM EDT Plan of Treatment Health Maintenance Due Date Last Done Comments Depression Screening 2009 Chlamydia and Gonorrhea Screening 05/13/2021 020 Meningococcal B Vaccines (1 of 2 - Standard) 2021 Hepatitis C Screening 10/24/2023 DTaP,Tdap,and Td Vaccines (1 - Tdap) 2024 Pneumococcal Vaccine (1 of 2 - PCV) 2024 COVID-19 Vaccine (1 - 2023-2 5 season) 2025 Influenza Vaccine (#1) 2025 Blood Pressure 04/24/2029 04/24/2025 Meningococcal Vaccines Aged Out No lo nger eligible based on patient's age to complete this topic Procedures Procedure Name Priority Date/Time Associated Diagnosis Comments CBC AND DIFFERENTIAL STAT 04/22/2025 5:45 AM EDT HCG, QUANTITATIVE Routine 04/22/2025 5:4 5 AM EDT CBC AND DIFFERENTIAL STAT 04/22/2025 5:45 AM EDT SALICYLATE LEVEL STAT 04/22/2025 5:45 AM EDT COMPREHENSIVE METABOLIC PANEL STAT 04/22/2025 5:45 AM EDT ACETAMINOPHEN LEVEL STAT 04/22/2025 5 :45 AM EDT ACETAMINOPHEN LEVEL STAT 04/22/2025 1 :20 AM EDT COMPREHENSIVE METABOLIC PANEL STAT 04/22/2025 1:20 AM EDT ECG 12-LEAD STAT 04/21/2025 9:37 PM EDT CBC AND DIFFERENTIAL STAT 04/21/2025 9:33 PM EDT CBC AND DIFFERENTIAL STAT 04/21/2025 9:33 PM EDT COMPREHENSIVE METABOLIC PANEL STAT 04/21/2025 9:33 PM EDT SALICYLATE LEVEL STAT 04/21/2025 9:33 PM EDT ACETAMINOPHEN LEVEL STAT 04/21/2025 9 :33 PM EDT DRUG SCREEN, URINE STAT 04/21/2025 9: 20 PM EDT AMPLIFIED PROBE, CHLAMYDIA TRACHOMATIS Routine 05/13/2020 7:40 PM EST Primary dysmenorrhea from Last 3 Months or Most Recently Relevant to Health Maintenance Results * (ABNORMAL) CBC and Differential (04/22/2025 5:45 AM EDT) Only the most recent of2 resultswithin the time period is included. WBC 9.26 4.00 - 11.00 K/uL 04/22/2025 5:50 AM EDT [facility] RBC 4.65 4.00 - 5.20 M/uL 04/22/2025 5:50 AM EDT [facility] Hemoglobin 13.6 12.0 - 15.0 g/dL 04/22/2025 5:50 AM EDT [facility] Hematocrit 41.8 36.0 - 45.0 % 04/22/2025 5:50 AM EDT [facility] MCH 29.2 23.0 - 37.0 pg 04/22/2025 5:50 AM EDT [facility] MCHC 32.5 29.0 - 38.0 g/dL 04/22/2025 5:50 AM EDT [facility] MCV 90 82 - 98 fL 04/22/2025 5:50 AM EDT [facility] RDW 12.8 11.5 - 14.5 % 04/22/2025 5:50 AM EDT [facility] Platelet Count 326 150 - 450 K/uL 04/22/2025 5:50 AM EDT [facility] MPV 9.3 6.0 - 14.0 fL 04/22/2025 5:50 AM EDT [facility] Neutrophil 61.0 % 04/22/2025 5:50 AM EDT [facility] Lymphocyte 26.1 % 04/22/2025 5:50 AM EDT [facility] Monocyte 10.2 % 04/22/2025 5:50 AM EDT [facility] Eosinophil 1.4 % 04/22/2025 5:50 AM EDT [facility] Basophil 1.0 % 04/22/2025 5:50 AM EDT [facility] Immature Granulocyte ([place], Myelo, Promyelocyte) 0.3 % 04/22/2025 5:50 AM EDT [facility] Absolute Neutrophil Count 5.65 1.50 - 7.70 K/uL 04/22/2025 5:50 AM EDT [facility] Absolute Immature Granulocyte ([place], Myelo, Promyelocyte) 0.03 0.00 - 0.09 K/uL 04/22/2025 5:50 AM EDT [facility] Absolute Lymphocyte Count 2.42 1.50 - 4.00 K/uL 04/22/2025 5:50 AM EDT [facility] Absolute Monocyte Count 0.94 0.16 - 1.26 K/uL 04/22/2025 5:50 AM EDT [facility] Absolute Eosinophil Count 0.13(L) 0.15 - 0.30 K/uL 04/22/2025 5:50 AM EDT [facility] Absolute Basophil Count 0.09 0.00 - 0.21 K/uL 04/22/2025 5:50 AM EDT [facility] Blood PERIPHERAL BLOOD SPECIMEN / Unknown Venipuncture / Unknown 04/22/2025 5:45 AM EDT 04/22/2025 5:47 AM EDT us James Womack MD LAB BLOOD ORDERABLES Final Result Performing Organization Address City/[facility] Co de Phone Number [facility] [address] [place] [address] * HCG, Quantitative (04/22/2025 5:45 AM EDT) hCG, Quant <1 <5 mIU/mL 04/22/2025 7:40 AM EDT [facility] Comment: Females: Non-: < 5.0 IU/L [...] MD LAB BLOOD ORDERABLES Final Resu lt Performing Organization Address City/[facility]/ZIP Co de Phone Number [facility] [address] [place] [address] * (ABNORMAL) Acetaminophen Level (04/22/2025 5:45 AM EDT) Only the most recent of3 resultswithin the time period is included. Acetaminophen Result,Blood <5(L) 10 - 30 ug/mL 04/22/2025 6:13 AM EDT [facility] Blood PERIPHERAL BLOOD SPECIMEN / Unknown Venipuncture / Unknown 04/22/2025 5:45 AM EDT 04/22/2025 5:47 AM EDT James Womack MD LAB BLOOD ORDERABLES Final Result Performing Organization Address City/[facility] Co de Phone Number [facility] [address] [place] [address] * Salicylate Level (04/22/2025 5:45 AM EDT) Only the most recent of2 resultswithin the time period is included. Pathologist [facility] Salicylate Level, Blood <1 <30 mg/dL 04/22/2025 6:13 AM EDT [facility] Comment:None Detected Blood PERIPHERAL BLOOD SPECIMEN / Unknown Venipuncture / Unknown 04/22/2025 5:45 AM EDT 04/22/2025 5:47 AM EDT James Womack MD LAB BLOOD ORDERABLES Final Result Performing Organization Address City/[facility]/ZIP Co de Phone Number [facility] [address] [place] [address] * (ABNORMAL) Comprehensive Metabolic Panel (CMP) (04/22/2025 5:45 AM EDT) Only the most recent of3 resultswithin the time period is included. Pathologist [facility] Sodium 143 135 - 146 mmol/L 04/22/2025 6:13 AM EDT [facility] Potassium 3.9 3.4 - 5.2 mmol/L 04/22/2025 6:13 AM EDT [facility] Comment:Samples tested in se rum may exhibit a higher potassium value than those tested on plasma. Our current range is based on plasma testing. Chloride 109 98 - 110 mmol/L 04/22/2025 6:13 AM EDT [facility] Total CO2/Bicarbonate 22(L) 24 - 32 mmol/L 04/22/2025 6:13 AM EDT [facility] Anion Gap 12 2 - 15 mmol/L 04/22/2025 6:13 AM EDT [facility] BUN 15 7 - 24 mg/dL 04/22/2025 6:13 AM EDT [facility] Creatinine, Blood 1.00 0.50 - 1.10 mg/dL 04/22/2025 6:13 AM EDT [facility] Glucose, Blood 80 50 - 100 mg/dL 04/22/2025 6:13 AM EDT [facility] Calcium 9.2 8.5 - 10.5 mg/dL 04/22/2025 6:13 AM EDT [facility] Total Protein 6.9 6.2 - 8.2 g/dL 04/22/2025 6:13 AM EDT [facility] Albumin, Blood 4.6 3.4 - 5.2 g/dL 04/22/2025 6:13 AM EDT [facility] Globulin Result 2.3 2.0 - 4.0 g/dL 04/22/2025 6:13 AM EDT [facility] AST (SGOT) 12 11 - 40 U/L 04/22/2025 6:13 AM EDT [facility] ALT (SGPT) 6 5 - 35 U/L 04/22/2025 6:13 AM EDT [facility] Alkaline Phosphatase 62 30 - 115 U/L 04/22/2025 6:13 AM EDT [facility] Total Bilirubin 0.2 0.2 - 1.2 mg/dL 04/22/2025 6:13 AM EDT [facility] Estimated GFR(CKD-EPI) 04/22/2025 6:13 AM EDT [facility] Blood PERIPHERAL BLOOD SPECIMEN / Unknown Venipuncture / Unknown 04/22/2025 5:45 AM EDT 04/22/2025 5:47 AM EDT James Womack MD LAB BLOOD ORDERABLES Final Result Performing Organization Address [facility] de Phone Number [facility] [address] [place] [address] * ECG 12 lead (04/21/2025 9:37 PM EDT) Ventricular Heart Rate 105 BPM EKG [facility]USE Atrial Heart Rate 105 BPM EKG [facility] AR Interval 148 ms EKG [facility] QRSD Interval 78 ms EKG [facility] QT Interval 322 ms EKG [facility] QTC Interval 425 ms EKG [facility]USE P [place] 72 degrees EKG BUR MUSE R [place] 47 degrees EKG BUR MUSE T Wave [place] 47 degrees EKG BUR MUSE 04/21/2025 9:32 PM EDT 04/22/2025 2:39 PM EDT Narrative EKG [facility] - 04/22/2025 2:39 PM EDT Sinus tachycardia Otherwise normal ECG No previous ECGs available Confirmed by Hunter Funk ([id number]) on 04/22/2025 2:39:32 PM Procedure Note Hunter Funk MD - 04/22/2025 Sinus tachycardia Otherwise normal ECG No previous ECGs available Confirmed by Hunter Funk ([id number]) on 04/22/2025 2:39:32 PM James Womack MD ECG ORDERABLES Final Resul t Performing Organization Address [facility] de Phone Number EKG [facility] [address] [place] [id number] * (ABNORMAL) Drug Screen, Urine (04/21/2025 9:20 PM EDT) 6-Aceytlmorphine Screen, Urine Negative Negative 04/21/2025 9:52 PM EDT [facility] Comment:Add on order [id number] Opiates and Oxycodone, Urine, Confirmation, if confirmation desired. Amphetamines Screen, Urine Negative Negative 04/21/2025 9:52 PM EDT [facility] Comment: Screen for Amphetamine, Metamphetamine or other Amphetamine-like compounds. Add-on order [id number] Amphetamine, Urine, Confirmation if confirmation desired. Barbiturates Screen, Urine Negative Negative 04/21/2025 9:52 PM EDT [facility] Comment:Add-on order [id number] Barbiturate, Urine, Confirmation if confirmation desired. Benzodiazepine Screen, Urine Negative Negative 04/21/2025 9:52 PM EDT [facility] Comment: Add-on order [id number] Benzodiazepine, Urine, Confirmation if confirmation desired. Buprenorphine Screen, Urine Negative Negative 04/21/2025 9:52 PM EDT [facility] Comment:Add-on order [id number] Buprenorphine, Urine, Confirmation if confirmation desired. Cannabinoids Screen, Urine Positive(A) Negative 04/21/2025 9:52 PM EDT [facility] Comment:Add-on order [id number] Cannabinoids, Urine, if confirmation desired. Cocaine Metabolite Screen, Urine Negative Negative 04/21/2025 9:52 PM EDT [facility] Comment:Add-on order [id number] Cocaine, Urine, Confirmation if confirmation desired. Ethanol Screen, Urine Negative Negative 04/21/2025 9:52 PM EDT [facility] Fentanyl Screen, Urine Negative Negative 04/21/2025 9:52 PM EDT [facility] Comment:Add-on order [id number] Fentanyl Confirmation, Urine, if confirmation desired. Methadone Screen, Urine Negative Negative 04/21/2025 9:52 PM EDT [facility] Comment:Add order [id number] Me thadone, Urine, Confirmation if confirmation desired. Opiates Screen, Urine Negative Negative 04/21/2025 9:52 PM EDT [facility] Comment: Screen for Morphine, Codeine, Hyrdocodone, Hydromorphone, or other Morphine- related opiates. Add on order [id number] Opiates and Oxycodone, Urine, Confirmation if confirmation desired. Oxycodone Screen, Urine Negative Negative 04/21/2025 9:52 PM EDT [facility] Comment:Add-on order [id number] Opiates and Oxycodone, Urine, Confirmation if confirmation desired. Tramadol Screen, Urine Negative Negative 04/21/2025 9:52 PM EDT [facility] Comment:Add-on order [id number] Tramadol Confirmation, Urine, if confirmation desired. Creatinine, Valentin Urine 28.0 >=15.0 mg/dL 04/21/2025 9:52 PM EDT [facility] Urine URINE SPECIMEN / Unknown Collection / Unknown 04/21/2025 9:20 PM EDT 04/21/2025 9:23 PM EDT Narrative [facility] - 04/21/2025 9:52 PM [...] testing can be done upon specific request. James Womack MD URINE ORDERABLES Final Resu lt Performing Organization Address [facility] Co de Phone Number [facility] [address] [place] [address] * Chlamydia trachomatis Amplified Probe (05/13/2020 7:40 PM EST) C. trachomatis by Amplified Probe Negative Negative 05/14/2020 1:36 PM EST [facility] xOther [facility] URINE SPECIMEN / Unknown 05/13/2020 7:40 PM EST 05/13/2020 7:40 PM EST Jose Eduardo Guzman MD MICROBIOLOGY - GENERAL ORDERABLE S Final Result Performing Organization Address [facility] Co de Phone Number [facility] [address] [place] [address] from Last 3 Months or Most Recently Relevant to Health Maintenance Care Teams Hand Worker Relationship Specialty Start Date End Date None, Pcp, PCP - General 04/21/25
--- OUTSIDE RECORDS SUMMARY | 2025-04-24 18:25 | XMS_ITS | Encounter Summary ---
Author Organization [facility] Address [address] [place] [address] Care Team Providers Care Buff Wheel Fabricator Name Role Phone Jose Eduardo Guzman MD Primary Care Provider [phone] None, Pcp Primary Care Provider Unavailabl e Encounter Details Date Type Department Care Team (Late st Contact Info) Description 05/13/2020 Lab Requisition [facility] [address] [place] [address] [phone] ThomasJose Eduardo MD [address] [facility] [address] [place] [address] Primary dysmenorrhea Social History Tobacco Use Types Packs/Day Years Used Date Smoking Tobacco: Never Assessed Comments Unknown Sex and Gender Information Value Date Recorded Sex Assigned at Female 04/21/2025 8:59 PM EDT Legal Sex Female 10:39 PM EDT Gender Identity Female 04/21/2025 8:59 PM EDT Sexual Orientation Not on file documented as of this encounter Plan of Treatment Not on file documented as of this encounter Procedures Procedure Name Priority Date/Time Associated Diagnosis Comments AMPLIFIED PROBE, CHLAMYDIA TRACHOMATIS Routine 05/13/2020 7:40 PM EST Primary dysmenorrhea documented in this encounter Results * Chlamydia trachomatis Amplified Probe (05/13/2020 7:40 PM EST) C. trachomatis by Amplified Probe Negative Negative 05/14/2020 1:36 PM EST [facility] xOther FIRST STREAM URINE SPECIMEN / Unknown 05/13/2020 7:40 PM EST 05/13/2020 7:40 PM EST Jose Eduardo Guzman MD MICROBIOLOGY - GENERAL ORDERABLE S Final Result [facility] [address] [place] [address] documented in this encounter Visit Diagnoses Diagnosis Primary dysmenorrhea Dysmenorrhea documented in this encounter Care Teams Buff Wheel Fabricator Relationship Specialty Start Date End Date Jose Eduardo Guzman MD [address] [facility] [address] [place] [address] PCP - General Pediatric Medicine 07/17/17 04/20/25 None, MD Lisa PCP - General 04/21/25 documented as of this encounter
--- OUTSIDE RECORDS SUMMARY | 2025-04-24 18:26 | XMS_ITS | Patient Health Record ---
Author Organization [facility] Address [address] [facility] [address] [place] [phone] Care Team Providers Care Lacquer Maker Name Role Phone ANGIE SANDERS Primary Care Provider Reason For Referral No Information Medications Medication SIG (Take, Route, Frequency, Duration) Notes Start Date End Date Status ProAir HFA 108 (90 Base) MCG/ACT 1 puff as needed Inhalation every 4 hrs PRN; Duration: 30 days 12/17/2019 Not-Takin g Aviane 0.1-20 MG-MCG 1 tablet Orally Onc e a day; Duration: 28 day(s) 05/13/2020 Active Immunizations Vaccine Route Administration Date Status Comme nts Varicella Unknown 12/04/2010 Administered Tdap Unknown 01/31/2017 Administered Pneumococcal conjugate PCV 7 Unknown 2005 Administered Pneumococcal conjugate PCV 7 Unknown 02/21/2006 Administered Pneumococcal conjugate PCV 7 Unknown 04/24/2006 Administered Pneumococcal conjugate PCV 7 Unknown 01/23/2007 Administered Pneumococcal conjugate PCV 13 Unknown 12/04/2009 Administered MMRV Unknown 01/23/2007 Administered MMR Unknown 12/04/2010 Administered Meningococcal ACWY Unknown 01/31/2017 Administered IPV Unknown 12/04/2009 Administered Influenza Vaccine Unknown 04/24/2006 Administered Influenza Vaccine Unknown 05/29/2006 Administered Influenza Vaccine Unknown 04/25/2007 Administered Influenza Vaccine Unknown 04/28/2011 Administered Influenza Vaccine Unknown 06/19/2012 Administered HPV (human papillomavirus) 9-valent IM Intramuscular 12/09/2019 Administered Hib (PRP-T), 4 dose schedule Unknown 2005 Administered Hib (PRP-T), 4 dose schedule Unknown 02/21/2006 Administered Hib (PRP-T), 4 dose schedule Unknown 04/24/2006 Administered Hib (PRP-T), 4 dose schedule Unknown 01/23/2007 Administered Hep B (0-18) pediatrics/adolescent Unknown 2005 Administered Hep A, ped/adol, 2 dose Unknown 01/23/2007 Administered Hep A, ped/adol, 2 dose Unknown 11/17/2008 Administered DTaP-Hep B-IPV Unknown 2005 Administered DTaP-Hep B-IPV Unknown 02/21/2006 Administered DTaP-Hep B-IPV Unknown 04/24/2006 Administered DTaP, 5 pertussis antigens Unknown 04/25/2007 Administe red DTaP, 5 pertussis antigens Unknown 12/04/2009 Administe red Problems Problem Type SNOMED Code ICD Code Onset Dates Problem Status W/U Status Risk Notes Problem Dysmenorrhea (869797062) Dysmenorrhea, unspecified (N94.6) Active confirmed Problem Wheeze (52943783) Wheeze (R06.2) Active confirm ed Problem Attention deficit hyperactivity disorder, 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
--- OUTSIDE RECORDS SUMMARY | 2025-04-24 18:26 | XMS_ITS | Encounter Summary ---
Author Organization [facility] Address [address] [place] [address] Care Team Providers Care Data Acquisition Technician Name Role Phone None, Pcp MD Primary Care Provider Unavailabl e Encounter Details Date Type Department Care Team (Latest Contact Info) Description 04/21/2025 Travel Social History Tobacco Use Types Packs/Day Years Used Date Smoking Tobacco: Every Day Cigarettes Comments:vape Alcohol Use Standard Drinks/Week Comments Yes [...] any time in the past 12 m [facility], were you homeless or living in a skilled nursing (including now)? Yes 04/21/2025 [facility] Utilities Answer Date Recorded In the past 12 months has th e electric, gas, oil, or water company threatened [...] on file documented as of this encounter Visit Diagnoses Not on filedocumented in this encounter Care Teams Data Acquisition Technician Relationship Specialty Start Date End Date None, Pcp, PCP - General 04/21/25 documented as of this encounter
[2025-04-24 20:00] VITALS: BP 130/76; PULSE 80; TEMP 36.6; O2SAT 97
[2025-04-25 08:00] VITALS: BP 110/62; PULSE 87; TEMP 36.7; O2SAT 99
--- NOTE | 2025-04-25 08:15 | HO.PM.IMCN ---
History of Present Illness Data of Consult Service Date: 04/25/25 Primary Care Provider: Unknown Physician HPI Reason for consult: Medical consult 19-year-old female with a past medical history of bipolar disorder, ADHD and PTSD presented to [facility] ED after taking 15 tablets of 800 mg of ibuprofen to in her life. EKG and her initial labs were negative for renal or hepatic injury, no electrolyte imbalances, no leukocytosis or anemia Tox screen positive for marijuana, electrolytes without any imbalances, no anemia no leukocytosis. On exam she is resting in bed quietly, no medical concerns. Review of Systems Review of Systems: Denies any shortness of breath, chest pain, headaches, dysuria, abdominal pain or discomfort, nausea, vomiting or diarrhea. Denies fever or chills. PMFSH Social History Household Members: Other Household Members Other:: stays with friends Housing: Homeless Do you presently have visiting nurse or other home services: No Patient Tobacco Use Status: Never used Tobacco e-Cigarette/Vaping Use: Currently Using Frequency of e-Cigarette/Vaping Use: daily Patient Interested in Nicotine Replacement: No Patient Given Instructions on How to Stop Smoking: No Currently Displaying Signs/Symptoms of Drug Intoxication Withdrawal: No Have you been hit, kicked, punched, or otherwise hurt by someone within the past year? If so, by whom?: No Do you feel safe in your current relationship?: Yes Is there a partner from a previous relationship who is making you feel unsafe now?: No Are you made to feel afraid or neglected: No (TOXIC relationship) Advance Directives: No Advance Directives Information Provided: No Do you have thoughts of harming others: None Do you have a plan to hurt others: No Plan Recently lost weight without trying: No Eating poorly because of decreased appetite: No Nutrition Risks: No Nutritional Risk Patient : No : No Poor oral hygiene: No service: No Sexual orientation: Straight/Heterosexual Meds Allergies Allergy/AdvReac Type Severity Reaction Status Date / Time No Known Allergies Allergy Verified 04/24/25 14:55 Active Medications: Current Medications Acetaminophen (Acetaminophen 325 Mg Tablet) 650 mg PO Q6H PRN PRN Reason: Headache/Pain, Scale 1-10 Al Hydroxide/Mg Hydroxide (Magnesium Hydrox/Alum Hydrox 30 Ml Oral.Susp) 30 ml PO Q6H PRN PRN Reason: Heartburn/Nausea Hydroxyzine HCl (Hydroxyzine Hcl 25 Mg Tablet) 25 mg PO Q6H PRN PRN Reason: mild anxiety Magnesium Hydroxide (Milk Of Magnesia 30 Ml Oral.Susp) 30 ml PO DAILY PRN PRN Reason: Constipation Nicotine (Nicotine 21 Mg Patch.Td24) 21 mg TRANSDERMA DAILY PRN PRN Reason: smoking cessation Nicotine Polacrilex (Nicotine Polacrilex 2 Mg Gum) 4 mg BUCCAL Q2H PRN PRN Reason: Nicotine Cravings Olanzapine (Olanzapine 5 Mg Tablet) 5 mg PO TID PRN PRN Reason: agitation Trazodone HCl (Trazodone Hcl 50 Mg Tablet) 50 mg PO BEDTIME MRX1 PRN PRN Reason: Insomnia Home Medications ?Medication ?Instructions ?Recorded ?Confirmed ?Last Taken ?Type ibuprofen 800 mg tablet 800 mg PO Q8H PRN mild pain 04/25/25 04/25/25 Unknown History Physical Exam Vital Signs and Narrative: Vital Signs: Last Vital Signs Temp 98 F 04/24/25 20:00 Pulse 80 04/24/25 20:00 BP 130/76 04/24/25 20:00 Pulse Ox 97 04/24/25 20:00 O2 Del Method Room Air 04/24/25 20:00 BMI result Body Mass Index 21.7 Alert and oriented X3, clam and cooperative. Answers questions. Neuro: CN II-X11 intact, no deficits, visual acuity intact EYES: PERRLA, EOM intact ENT: Hearing intact, MMM Cardiac: S1 S2 RRR, No ectopy Pulmonary: lungs clear to auscultation, No increased WOB. Abdominal: BS active in all 4 quadrants, no guarding or tenderness MSK: Strength 5/5 upper and lower extremities : Deferred Extremities: No edema in lower extremities Psych: Mood stable, Quiet and cooperative. Skin: Warm and dry, Intact Assessment and Plan (1) Suicide attempt: Status: Acute Plan 19-year-old female presented to [facility] ED after taking 15 tablets of 800 mg of ibuprofen to in her life. She is admitted here for further stabilization Bipolar disorder/ADHD/PTSD/SI Treatment per psychiatric team Recommend to Follow labs Thank you for allowing me to participate in the care of this patient. Will follow with you, please notify medical provider with any changes in condition or concerns.
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
[2025-04-25 13:04] LABS: Hemoglobin A1C 93.3823 umol/L; Total Hemoglobin (HGBA1C) 3775.3970 umol/L
[2025-04-25 13:11] LABS: Alanine Aminotransferase 10 U/L (0-31); Albumin Level 5.0 g/dL (3.5-5.0); Alkaline Phosphatase 62 U/L (39-117); Anion Gap 11 (12-20); Aspartate Amino Transferase 18 U/L (5-31); Blood Urea Nitrogen 13 mg/dL (9-16); Calcium 9.4 mg/dL (8.4-10.2); Carbon Dioxide 25 mmol/L (22-29); Chloride 109 mmol/L (96-108); Cholesterol 143 mg/dL (<200); Creatinine Clr Calc Pharmacy 87.7; Estimated Glomerular Filt Rate > 60; HDL Cholesterol 56 mg/dL (>40); Potassium 4.0 mmol/L (3.3-5.1); Sodium 141 mmol/L (135-145); Total Protein 7.5 g/dL (6.5-8.0); Triglycerides 53 mg/dL (<150)
[2025-04-25] MEDS: guanFACINE HCl ER 1 MG TAB.ER.24H PO (13:21)
[2025-04-25 20:00] VITALS: BP 114/72; PULSE 70; TEMP 36.9; O2SAT 98
[2025-04-26 08:00] VITALS: BP 92/55; PULSE 67; RESP 16; TEMP 36.6; O2SAT 97
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
[2025-04-26 20:00] VITALS: BP 143/84; PULSE 80; TEMP 36.9; O2SAT 97
[2025-04-27 08:00] VITALS: BP 118/63; PULSE 71; RESP 16; TEMP 36.3; O2SAT 98
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
[2025-04-27 20:00] VITALS: BP 116/68; PULSE 87; RESP 16; TEMP 36.9; O2SAT 99
[2025-04-28 08:00] VITALS: BP 102/57; PULSE 69; TEMP 37.3; O2SAT 97
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
[2025-04-28 19:53] VITALS: BP 130/63; PULSE 88; TEMP 36.8; O2SAT 99
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
== END 2025-04-29 11:41 | disposition home or self-care (01) | DRG 755 ==
PROVIDERS: Admitting Provider Psychiatry & Neurology Psychiatry; Visit Provider Psychiatry & Neurology Psychiatry
DX: F43.10 Post-traumatic stress disorder, unspecified (principal); Z91.51 Personal history of suicidal behavior
CPT/HCPCS: 36415; 80053; 80061; 83036; 84443

== ENCOUNTER → 2025-04-24 14:32 | Outpatient (BNV) | payer SELFPAY | PROVIDERS: Admitting Provider Psychiatry & Neurology Psychiatry; Visit Provider Psychiatry & Neurology Psychiatry | DX: F43.10 Post-traumatic stress disorder, unspecified (principal) | CPT/HCPCS: 99232 ==

== ENCOUNTER → 2025-04-24 14:32 | Outpatient (BNV) | payer MEDICAID, SELFPAY | PROVIDERS: Admitting Provider Psychiatry & Neurology Psychiatry; Visit Provider Nurse Practitioner Family | DX: T14.91XA Suicide attempt, initial encounter (principal) | CPT/HCPCS: 99221 ==